=== PATIENT | female | born 2000 | race Caucasian/White ===

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

== ENCOUNTER 2020-06-15 11:13 | Emergency (ER) | payer OTHER ==
--- NOTE | 2020-06-15 12:10 | ED ---
Female Urogenital HPI - General Chief complaint: Vaginal Bleeding Stated complaint: early /vaginal bleeding Time Seen by Provider: 06/15/20 11:28 Source: patient Mode of arrival: ambulatory Limitations: no limitations - History of Present Illness Initial comments: Patient is a 19-year-old female presenting to the emergency Department with complaints of vaginal bleeding and some mild cramping. Patient states she had a positive test last week at home, she was having some bleeding over the next 2 days and was seen at a different facility and had a normal lab work but no ultrasound was done. Patient states the bleeding has continued over the past week and has turned to bright red blood and today she noticed a clot in the toilet so she became concerned and came into the ER for evaluation. She does admit to some mild cramping, none at this time. She does admit to some mild nausea no vomiting. No fever or chills. No history of abdominal surgeries. This is her first . She has been having contact with Dr. Ryan's office however she has not yet established patient there. He denies any chest pain, shortness of breath, cough or recent illnesses. She denies concerns for STDs. She has no further complaints at this time. Upon arrival to the ER, her vital signs are stable. Last Menstrual Period: 05/04/20 - Related Data Home Medications Medication Instructions Recorded Confirmed No Known Home Medications 06/15/20 06/15/20 Allergies Allergy/AdvReac Type Severity Reaction Status Date / Time No Known Allergies Allergy Verified 06/15/20 12:11 Review of Systems ROS Statement: Those systems with pertinent positive or pertinent negative responses have been documented in the HPI. ROS Other: All systems not noted in ROS Statement are negative. Past Medical History Past Medical History: No Reported History History of Any Multi-Drug Resistant Organisms: None Reported Past Surgical History: No Surgical Hx Reported Past Psychological History: Anxiety Smoking Status: Former smoker Past Alcohol Use History: None Reported Past Drug Use History: None Reported General Exam - General Exam Comments Initial Comments: GENERAL: Patient is well-developed and well-nourished. Patient is nontoxic and in no acute distress. HEAD: Atraumatic, normocephalic. EYES: Pupils equal round and reactive to light, extraocular movements intact, sclera anicteric, conjunctiva are normal. Eyelids were unremarkable. ENT: TMs normal, nares patent, oropharynx clear without exudates. Moist mucous membranes. NECK: Normal range of motion, supple without lymphadenopathy or JVD. LUNGS: Unlabored respirations. Breath sounds clear to auscultation bilaterally and equal. No wheezes rales or rhonchi. HEART: Regular rate and rhythm without murmurs, rubs or gallops. ABDOMEN: Soft, nontender, normoactive bowel sounds. No guarding, no rebound. No masses appreciated. : Normal pelvic exam, very minimal vaginal bleeding at this time. MUSCULOSKELETAL: Normal extremities with adequate strength and normal range of motion, no pitting or edema. No clubbing or cyanosis. NEUROLOGICAL: Patient is alert and oriented x 3. Motor and sensory are also intact. Cranial nerves II through XII grossly intact. Symmetrical smile. Normal speech, normal gait. PSYCH: Normal mood, normal affect. SKIN: Warm, Dry, normal turgor, no rashes or lesions noted. Limitations: no limitations Course Vital Signs 06/15/20 06/15/20 11:14 13:06 Temperature 97.5 F L 98.2 F Pulse Rate 82 70 Respiratory 18 16 Rate Blood Pressure 120/69 127/66 O2 Sat by Pulse 100 98 Oximetry Medical Decision Making - Medical Decision Making Patient is 19-year-old female here for vaginal bleeding and some mild cramping over the past week and a half. She did have a positive home test one week ago, this is her first . She has been in contact with Dr. Ryan's office but is not yet established patient. Her vitals are stable. Labs are normal, hCG Quant today is 15.3, urine shows large amount of blood, no evidence of a UTI. Ultrasound today shows no visualized IUP, ectopic , miscarriage, too early to visualize IUP are all in the differential. Patient is having no pain at this time. Blood type is A+. I discussed these findings with the patient. Patient will have hCG levels rechecked in 48 hours, she can follow-up with Dr. Ryan's office. Return parameters were discussed with the patient she verbalized understanding. Case discussed with Dr. Jimenez. - Lab Data Result diagrams: 06/15/20 12:04 06/15/20 12:04 Lab Results 06/15/20 06/15/20 06/15/20 Range/Units 12:04 12:04 12:04 WBC 7.3 (3.8-10.6) k/uL RBC 5.21 (3.80-5.40) m/uL Hgb 14.3 (11.4-16.0) gm/dL Hct 44.1 (34.0-46.0) % MCV 84.6 (80.0-100.0) fL MCH 27.4 (25.0-35.0) pg MCHC 32.4 (31.0-37.0) g/dL RDW 13.2 (11.5-15.5) % Plt Count 334 (150-450) k/uL MPV 6.7 Neutrophils % 67 % Lymphocytes % 27 % Monocytes % 3 % Eosinophils % 2 % Basophils % 0 % Neutrophils # 4.9 (1.3-7.7) k/uL Lymphocytes # 2.0 (1.0-4.8) k/uL Monocytes # 0.2 (0-1.0) k/uL Eosinophils # 0.1 (0-0.7) k/uL Basophils # 0.0 (0-0.2) k/uL Sodium 140 (137-145) mmol/L Potassium 3.7 (3.5-5.1) mmol/L Chloride 105 (98-107) mmol/L Carbon Dioxide 28 (22-30) mmol/L Anion Gap 7 mmol/L BUN 11 (7-17) mg/dL Creatinine 0.76 (0.52-1.04) mg/dL Est GFR (CKD-EPI)AfAm >90 (>60 ml/min/1.73 sqM) Est GFR (CKD-EPI)NonAf >90 (>60 ml/min/1.73 sqM) Glucose 120 H (74-99) mg/dL Calcium 9.3 (8.4-10.2) mg/dL Total Bilirubin 0.5 (0.2-1.3) mg/dL AST 21 (14-36) U/L ALT 15 (4-34) U/L Alkaline Phosphatase 64 (38-126) U/L Total Protein 7.8 (6.3-8.2) g/dL Albumin 4.5 (3.5-5.0) g/dL HCG, Quant 15.3 mIU/mL Urine Color Light Yellow Urine Appearance Cloudy H (Clear) Urine pH 6.0 (5.0-8.0) Ur Specific [place] 1.011 (1.001-1.035) Urine Protein Negative (Negative) Urine Glucose (UA) Negative (Negative) Urine Ketones Negative (Negative) Urine Blood Large H (Negative) Urine Nitrite Negative (Negative) Urine Bilirubin Negative (Negative) Urine Urobilinogen <2.0 (<2.0) mg/dL Ur Leukocyte Esterase Trace H (Negative) Urine RBC <1 (0-5) /hpf Urine WBC 5 (0-5) /hpf Ur Squamous Epith Cells 2 (0-4) /hpf Urine Mucus Rare H (None) /hpf Blood Type Blood Type Recheck Bld Type Recheck Status 06/15/20 Range/Units 12:04 WBC (3.8-10.6) k/uL RBC (3.80-5.40) m/uL Hgb (11.4-16.0) gm/dL Hct (34.0-46.0) % MCV (80.0-100.0) fL MCH (25.0-35.0) pg MCHC (31.0-37.0) g/dL RDW (11.5-15.5) % Plt Count (150-450) k/uL MPV Neutrophils % % Lymphocytes % % Monocytes % % Eosinophils % % Basophils % % Neutrophils # (1.3-7.7) k/uL Lymphocytes # (1.0-4.8) k/uL Monocytes # (0-1.0) k/uL Eosinophils # (0-0.7) k/uL Basophils # (0-0.2) k/uL Sodium (137-145) mmol/L Potassium (3.5-5.1) mmol/L Chloride (98-107) mmol/L Carbon Dioxide (22-30) mmol/L Anion Gap mmol/L BUN (7-17) mg/dL Creatinine (0.52-1.04) mg/dL Est GFR (CKD-EPI)AfAm (>60 ml/min/1.73 sqM) Est GFR (CKD-EPI)NonAf (>60 ml/min/1.73 sqM) Glucose (74-99) mg/dL Calcium (8.4-10.2) mg/dL Total Bilirubin (0.2-1.3) mg/dL AST (14-36) U/L ALT (4-34) U/L Alkaline Phosphatase (38-126) U/L Total Protein (6.3-8.2) g/dL Albumin (3.5-5.0) g/dL HCG, Quant mIU/mL Urine Color Urine Appearance (Clear) Urine pH (5.0-8.0) Ur Specific [place] (1.001-1.035) Urine Protein (Negative) Urine Glucose (UA) (Negative) Urine Ketones (Negative) Urine Blood (Negative) Urine Nitrite (Negative) Urine Bilirubin (Negative) Urine Urobilinogen (<2.0) mg/dL Ur Leukocyte Esterase (Negative) Urine RBC (0-5) /hpf Urine WBC (0-5) /hpf Ur Squamous Epith Cells (0-4) /hpf Urine Mucus (None) /hpf Blood Type A Positive Blood Type Recheck No Previous Record Bld Type Recheck Status [facility] ONLY Disposition Clinical Impression: Threatened miscarriage, Vaginal bleeding Disposition: HOME SELF-CARE Condition: Stable Instructions (If sedation given, give patient instructions): Threatened Miscarriage (ED) Additional Instructions: Please return to the Emergency Department if symptoms worsen or any other concerns. Repeat beta levels in 48 hours as discussed. Follow up with Dr. Ryan's office. Is patient prescribed a controlled substance at d/c from ED?: No Referrals: Yeimy Guzman MD [Primary Care Provider] - 1-2 days Dorinda Ryan DO [Doctor of Osteopathic Medicine] - 1-2 days
[2020-06-15 12:18] LABS: Basophils % (A) 0 %; Eosinophils # (A) 0.1 k/uL (0-0.7); Eosinophils % (A) 2 %; HCT 44.1 % (34.0-46.0); HGB 14.3 gm/dL (11.4-16.0); Lymphocytes % (A) 27 %; MCH 27.4 pg (25.0-35.0); MCHC 32.4 g/dL (31.0-37.0); MCV 84.6 fL (80.0-100.0); Mean Platelet Volume 6.7; Monocytes # (A) 0.2 k/uL (0-1.0); Monocytes % (A) 3 %; Neutrophils # (A) 4.9 k/uL (1.3-7.7); Neutrophils % (A) 67 %; Platelet Count 334 k/uL (150-450); RBC 5.21 m/uL (3.80-5.40); RDW 13.2 % (11.5-15.5); WBC 7.3 k/uL (3.8-10.6)
[2020-06-15 12:29] LABS: ALT 15 U/L (4-34); AST 21 U/L (14-36); African American GFR (CKD) >90 (>60 ml/min/1.73 sqM); Albumin 4.5 g/dL (3.5-5.0); Alkaline Phosphatase 64 U/L (38-126); Anion Gap 7 mmol/L; Blood Urea Nitrogen 11 mg/dL (7-17); Calcium 9.3 mg/dL (8.4-10.2); Carbon Dioxide 28 mmol/L (22-30); Chloride 105 mmol/L (98-107); Glucose 120 mg/dL (74-99); Non-African American GFR(CKD) >90 (>60 ml/min/1.73 sqM); Potassium 3.7 mmol/L (3.5-5.1); Sodium 140 mmol/L (137-145); Total Bilirubin 0.5 mg/dL (0.2-1.3); Total Protein 7.8 g/dL (6.3-8.2)
[2020-06-15 12:30] LABS: Appearance,Urine Cloudy (Clear); Bilirubin,Urine Negative (Negative); Blood,Urine Large (Negative); Color,Urine Light Yellow; Glucose,Urine (UA) Negative (Negative); Ketones,Urine Negative (Negative); Leukocyte Esterase,Urine Trace (Negative); Mucus,Urine Rare /hpf; Nitrite,Urine Negative (Negative); Protein,Urine Negative (Negative); RBC,Urine <1 /hpf (0-5); Specific Gravity,Urine 1.011 (1.001-1.035); Squamous Epithelial Cell,Urine 2 /hpf (0-4); Urobilinogen,Urine <2.0 mg/dL (<2.0); WBC,Urine 5 /hpf (0-5)
[2020-06-15 12:44] LABS: HCG,Quantitative Serum 15.3 mIU/mL
--- NOTE | 2020-06-15 12:48 | US ---
EXAMINATION TYPE: Ultrasound OB <= 14 weeks transvaginal DATE OF EXAM: 06/15/2020 12:29 PM COMPARISON: NONE CLINICAL HISTORY: 19-year-old female bleeding, cramp, 5wks. Pt states light vaginal bleeding, passing small clot this AM EXAM PERFORMED: Transvaginal (TV) and Transabdominal (TA) FINDINGS: EXAM MEASUREMENTS: GESTATIONAL AGE / DATING Physician Established: Not yet established Dates by LMP: (6 weeks/0 days) EDC: 02/08/2021 Dates by First Scan: No prior Dates by Current Scan for: No IUP seen at this time MATERNAL ANATOMY Uterus: 6.7 x 2.8 x 4.6 cm Right Ovary: 2.4 x 1.9 x 1.4 cm Left Ovary: 2.5 x 1.6 x 2.1 cm Post CDS / Adnexa: Heterogeneous round area measuring 2.1 x 1.5 x 1.1 cm adjacent to the left ovary w ithin the left adnexa. Presence of free fluid: No Presence of corpus luteal cyst: No Presence of subchorionic bleed: No GESTATION / SURVEY IUP: No IUP seen at this time, endo= 0.3 cm Date of LMP: 05/04/2020 Beta HcG (if available): Not available at this time No evidence of IUP, endo not thickened, heterogeneous round area within left adnexa, adjacent to th e ovary measuring 2.1 x 1.5 x 1.1 cm IMPRESSION: 1. No visualized intrauterine at this time. 2. A 2.1 cm round area within the left adnexa adjacent to the left ovary. Given positive st atus and nonvisualization of an intrauterine , early ectopic is difficult to exclu de. Correlate with beta-hCG values. A value of 2000 is the threshold for visualization of an intraute rine . Ectopic , failed , and too early to visualize intrauterine pregnanc y are in the on the differential at this time.
[2020-06-15 13:11] VITALS: BP 127/66; PULSE 70; RESP 16; TEMP 98.2
== END 2020-06-15 13:26 | disposition home or self-care (01) ==
LOC: EC 11:13
DX: O20.0 Threatened abortion (principal); Z3A.00 Weeks of gestation of pregnancy not specified; Z87.891 Personal history of nicotine dependence
CPT/HCPCS: 36415; 76801; 76817; 80053; 81001; 84702; 85025; 86900; 86901; 99284

== ENCOUNTER → 2020-06-17 | Outpatient (CLI) | payer OTHER | LOC: LABWHC1 11:52 | PROVIDERS: ATTEND Physician Assistant Medical | DX: N93.9 Abnormal uterine and vaginal bleeding, unspecified (principal) | CPT/HCPCS: 36415; 84702 ==

== ENCOUNTER 2020-08-19 08:20 | Emergency (ER) | payer OTHER ==
[2020-08-19 08:26] VITALS: BP 106/69; PULSE 76; RESP 18; TEMP 97.5
--- NOTE | 2020-08-19 08:41 | ED ---
General Adult HPI - General Chief complaint: Abdominal Pain Stated complaint: UTI Source: patient, family, RN notes reviewed, old records reviewed Mode of arrival: ambulatory Limitations: no limitations - History of Present Illness Initial comments: This is a 19-year-old female comes in complaining that she has dysuria and urinary frequency and urgency. Patient states she's had a urinary tract infection in the past and this feels similar. Patient denies any back pain. Patient denies any fever. Patient states she has some suprapubic discomfort but no actual pain per patient denies any nausea vomiting diarrhea. Patient denies any recent fever chills or cough per patient denies any chest pain difficulty breathing shortest breath per patient denies headache patient denies numbness weakness. - Related Data Previous Rx's Medication Instructions Recorded Cephalexin [Keflex] 500 mg PO Q6HR 1 Days #4 cap 08/19/20 Allergies Allergy/AdvReac Type Severity Reaction Status Date / Time No Known Allergies Allergy Verified 08/19/20 08:24 Review of Systems ROS Statement: Those systems with pertinent positive or pertinent negative responses have been documented in the HPI. ROS Other: All systems not noted in ROS Statement are negative. Past Medical History Past Medical History: No Reported History History of Any Multi-Drug Resistant Organisms: None Reported Past Surgical History: No Surgical Hx Reported Past Psychological History: Anxiety Smoking Status: Former smoker Past Alcohol Use History: None Reported Past Drug Use History: None Reported General Exam - General Exam Comments Initial Comments: GENERAL: Patient is well-developed and well-nourished. Patient is nontoxic and well- hydrated and is in mild distress. ENT: Neck is soft and supple. No significant lymphadenopathy is noted. Oropharynx is clear. Moist mucous membranes. Neck has full range of motion without eliciting any pain. There is no thyroid enlargement and no masses were felt. EYES: The sclera were anicteric and conjunctiva were pink and moist. Extraocular movements were intact and pupils were equal round and reactive to light. Eyelids were unremarkable. PULMONARY: Unlabored respirations. Good breath sounds bilaterally. No audible rales rhonchi or wheezing was noted. CARDIOVASCULAR: There is a regular rate and rhythm without any murmurs gallops or rubs. ABDOMEN: Mild suprapubic tenderness. SKIN: Skin is clear with no lesions or rashes and otherwise unremarkable. NEUROLOGIC: Patient is alert and oriented x3. Cranial nerves II through XII are grossly intact. Motor and sensory are also intact. Normal speech, volume and content. Symmetrical smile. Cerebellar exam grossly intact. MUSCULOSKELETAL: Normal extremities with adequate strength and full range of motion. Patient has no CVA tenderness LYMPHATICS: No significant lymphadenopathy is noted PSYCHIATRIC: Normal psychiatric evaluation. Limitations: no limitations Course Vital Signs 08/19/20 08:21 Temperature 97.5 F L Pulse Rate 76 Respiratory 18 Rate Blood Pressure 106/69 O2 Sat by Pulse 98 Oximetry Medical Decision Making - Medical Decision Making Patient's urine only had 12 white cells no bacteria notices no nitrates however patient's symptoms were consistent with UTI side did have the urine culture and I will put the patient on an antibiotic to have her follow-up for results with her medical care doctor. Patient also states she is monogamous relationship however I did do a gonorrhea and chlamydia on the urine. - Lab Data Lab Results 08/19/20 08/19/20 Range/Units 08:51 08:51 Urine Color Yellow Urine Appearance Clear (Clear) Urine pH 6.0 (5.0-8.0) Ur Specific [place] 1.005 (1.001-1.035) Urine Protein Negative (Negative) Urine Glucose (UA) Negative (Negative) Urine Ketones Negative (Negative) Urine Blood Negative (Negative) Urine Nitrite Negative (Negative) Urine Bilirubin Negative (Negative) Urine Urobilinogen <2.0 (<2.0) mg/dL Ur Leukocyte Esterase Small H (Negative) Urine RBC 1 (0-5) /hpf Urine WBC 12 H (0-5) /hpf Ur Squamous Epith Cells 1 (0-4) /hpf Urine HCG, Qual Not Detected (Not Detectd) Disposition Clinical Impression: Urinary tract infection Disposition: HOME SELF-CARE Condition: Good Prescriptions: Cephalexin [Keflex] 500 mg PO Q6HR 1 Days #4 cap Is patient prescribed a controlled substance at d/c from ED?: No Referrals: Yeimy Guzman MD [Primary Care Provider] - 1-2 days Time of Disposition: 09:09
[2020-08-19 09:02] LABS: Appearance,Urine Clear (Clear); Bilirubin,Urine Negative (Negative); Blood,Urine Negative (Negative); Color,Urine Yellow; Glucose,Urine (UA) Negative (Negative); Ketones,Urine Negative (Negative); Leukocyte Esterase,Urine Small (Negative); Nitrite,Urine Negative (Negative); Protein,Urine Negative (Negative); RBC,Urine 1 /hpf (0-5); Specific Gravity,Urine 1.005 (1.001-1.035); Squamous Epithelial Cell,Urine 1 /hpf (0-4); Urobilinogen,Urine <2.0 mg/dL (<2.0); WBC,Urine 12 /hpf (0-5)
[2020-08-20 14:49] LABS: C. trachomatis,PCR Negative (Neg,Equiv); Chlamydia trachomatis Source Urine
[2020-08-20 14:49] LABS: N. gonorrhoeae,PCR Negative (Neg,Equiv); Neisseria Source Urine
== END 2020-08-19 09:20 | disposition home or self-care (01) ==
LOC: EC 08:20
DX: N39.0 Urinary tract infection, site not specified (principal); Z87.891 Personal history of nicotine dependence
CPT/HCPCS: 81001; 81025; 87086; 87491; 87591; 99283

== ENCOUNTER 2020-11-06 11:27 | Emergency (ER) | payer OTHER ==
[2020-11-06 12:09] VITALS: TEMP 97.7
--- NOTE | 2020-11-06 12:40 | ED ---
General Adult HPI - General Chief complaint: Vaginal Bleeding Stated complaint: +preg test, bleeding Time Seen by Provider: 11/06/20 12:10 Source: patient, RN notes reviewed Mode of arrival: ambulatory Limitations: no limitations - History of Present Illness Initial comments: 20-year-old female presents emergency from chief complaint of vaginal bleeding early . Patient is A1 states that she had some spotting gastritis morning denies any lower abdominal pain cramping no vaginal discharge. Patient states that she is scheduled follow-up with her primary care physician on Sunday has not contacted a [facility] at this time. Patient does admit to a miscarriage a few months prior. - Related Data Previous Rx's Medication Instructions Recorded Cephalexin [Keflex] 500 mg PO Q6HR 1 Days #4 cap 08/19/20 Allergies Allergy/AdvReac Type Severity Reaction Status Date / Time No Known Allergies Allergy Verified 11/06/20 12:08 Review of Systems ROS Statement: Those systems with pertinent positive or pertinent negative responses have been documented in the HPI. ROS Other: All systems not noted in ROS Statement are negative. Past Medical History Past Medical History: No Reported History History of Any Multi-Drug Resistant Organisms: None Reported Past Surgical History: No Surgical Hx Reported Past Psychological History: Anxiety Smoking Status: Former smoker Past Alcohol Use History: None Reported Past Drug Use History: None Reported General Exam Limitations: no limitations General appearance: alert, in no apparent distress Head exam: Present: atraumatic, normocephalic, normal inspection Respiratory exam: Present: normal lung sounds bilaterally. Absent: respiratory distress, wheezes, rales, rhonchi, stridor Cardiovascular Exam: Present: regular rate, normal rhythm, normal heart sounds. Absent: systolic murmur, diastolic murmur, rubs, gallop, clicks GI/Abdominal exam: Present: soft, normal bowel sounds. Absent: distended, tenderness, guarding, rebound, rigid Back exam: Absent: CVA tenderness (R), CVA tenderness (L) Neurological exam: Present: alert Skin exam: Present: warm, dry, intact, normal color. Absent: rash Course Vital Signs 11/06/20 12:05 Temperature 97.7 F Pulse Rate 90 Respiratory 20 Rate Blood Pressure 117/66 O2 Sat by Pulse 100 Oximetry Medical Decision Making - Medical Decision Making 20-year-old female presented for vaginal bleeding. Patient states she had a positive test at home patient's hCG is less than 2.4. Patient is currently having her menstrual cycle be discharged stable condition. - Lab Data Lab Results 11/06/20 11/06/20 Range/Units 12:19 12:19 HCG, Quant <2.4 mIU/mL Urine Color Yellow Urine Appearance Cloudy H (Clear) Urine pH 6.0 (5.0-8.0) Ur Specific [place] 1.030 (1.001-1.035) Urine Protein Trace H (Negative) Urine Glucose (UA) Negative (Negative) Urine Ketones Negative (Negative) Urine Blood Large H (Negative) Urine Nitrite Negative (Negative) Urine Bilirubin Negative (Negative) Urine Urobilinogen <2.0 (<2.0) mg/dL Ur Leukocyte Esterase Small H (Negative) Urine RBC 102 H (0-5) /hpf Urine WBC 15 H (0-5) /hpf Ur Squamous Epith Cells 3 (0-4) /hpf Urine Bacteria Rare H (None) /hpf Urine Mucus Occasional H (None) /hpf Disposition Clinical Impression: Vaginal bleeding Disposition: HOME SELF-CARE Condition: Stable Instructions (If sedation given, give patient instructions): Dysfunctional Uterine Bleeding (ED) Additional Instructions: Please return to the Emergency Department if symptoms worsen or any other concerns. Is patient prescribed a controlled substance at d/c from ED?: No Referrals: Yeimy Guzman MD [Primary Care Provider] - 1-2 days Time of Disposition: 13:16
[2020-11-06 12:43] LABS: Appearance,Urine Cloudy (Clear); Bacteria,Urine Rare /hpf; Bilirubin,Urine Negative (Negative); Blood,Urine Large (Negative); Color,Urine Yellow; Glucose,Urine (UA) Negative (Negative); Ketones,Urine Negative (Negative); Leukocyte Esterase,Urine Small (Negative); Mucus,Urine Occasional /hpf; Nitrite,Urine Negative (Negative); Protein,Urine Trace (Negative); RBC,Urine 102 /hpf (0-5); Squamous Epithelial Cell,Urine 3 /hpf (0-4); Urobilinogen,Urine <2.0 mg/dL (<2.0); WBC,Urine 15 /hpf (0-5)
--- NOTE | 2020-11-06 13:29 | US ---
EXAMINATION TYPE: Transabdominal DATE OF EXAM: 11/06/2020 1:16 PM COMPARISON: NONE CLINICAL HISTORY: pain, bleeding. EXAM PERFORMED: Transabdominal (TA) EXAM MEASUREMENTS: GESTATIONAL AGE / DATING Physician Established: Not yet established Dates by LMP: (4 weeks/5 days) EDC: 07-11-21 Dates by First Scan: No previous this is first scan Dates by Current Scan for: Unable to date by today's study MATERNAL ANATOMY Uterus: 7.1 x 3.3 x Right Ovary: 2.3 x 1.5 x 1.6cm Left Ovary: 2.2 x 1.2 x 1.3 Post CDS / Adnexa: wnl Presence of free fluid: no Presence of corpus luteal cyst: no Presence of subchorionic bleed:no GESTATION / SURVEY IUP: No IUP seen at this time Date of LMP: 10-04-20 Beta HcG (if available): Not available at this time Normal appearing uterus and endometrium with no evidence for intrauterine . No adnexal abnor malities. IMPRESSION: No significant abnormality of the uterus or adnexa. No evidence of intrauterine .
[2020-11-06 13:56] VITALS: BP 105/59; PULSE 61; RESP 18
== END 2020-11-06 13:56 | disposition home or self-care (01) ==
LOC: EC 11:27
DX: O20.9 Hemorrhage in early pregnancy, unspecified (principal); Z87.891 Personal history of nicotine dependence; Z3A.01 Less than 8 weeks gestation of pregnancy
CPT/HCPCS: 36415; 76801; 81001; 84702; 87086; 99284

== ENCOUNTER 2021-02-27 16:43 | Emergency (ER) | payer OTHER ==
[2021-02-27 16:55] VITALS: RESP 18; TEMP 98
--- NOTE | 2021-02-27 19:38 | XR ---
EXAMINATION TYPE: XR chest 2V DATE OF EXAM: 02/27/2021 COMPARISON: NONE HISTORY: Cough. Short of breath. TECHNIQUE: 2 views FINDINGS: Heart and mediastinum are normal. Lungs are clear. Diaphragm is normal. Bony thorax appears normal. Pulmonary vascularity is normal. IMPRESSION: Normal chest.
--- NOTE | 2021-02-27 19:38 | ED ---
General Adult HPI - General Chief complaint: Upper Respiratory Infection Stated complaint: difficulty breathing Time Seen by Provider: 02/27/21 19:05 Source: patient, RN notes reviewed Mode of arrival: ambulatory Limitations: no limitations - History of Present Illness Initial comments: 20-year-old female presents to the emergency room for chief complaint of not feeling well. Patient states she started to feel well yesterday however worsened today. States she is very congested and has trouble breathing through her nose. States she has a cough as well. Denies any significant shortness of breath other than nasal congestion. Patient states her throat hurts. Patient denies history of asthma but does admit to smoking. Denies fevers. Denies body aches. Patient has no other complaints at this time including shortness of breath, chest pain, abdominal pain, nausea or vomiting, headache, or visual changes. - Related Data Previous Rx's Medication Instructions Recorded Cephalexin [Keflex] 500 mg PO Q6HR 1 Days #4 cap 08/19/20 Benzonatate [Tessalon Perles] 200 mg PO Q8H PRN #15 cap 02/27/21 guaiFENesin [Mucinex] 600 mg PO Q12HR PRN #20 tab 02/27/21 Allergies Allergy/AdvReac Type Severity Reaction Status Date / Time No Known Allergies Allergy Verified 11/06/20 12:08 Review of Systems ROS Statement: Those systems with pertinent positive or pertinent negative responses have been documented in the HPI. ROS Other: All systems not noted in ROS Statement are negative. Past Medical History Past Medical History: No Reported History History of Any Multi-Drug Resistant Organisms: None Reported Past Surgical History: No Surgical Hx Reported Past Psychological History: Anxiety Smoking Status: Current some day smoker Past Alcohol Use History: None Reported Past Drug Use History: None Reported General Exam Limitations: no limitations General appearance: alert, in no apparent distress Head exam: Present: atraumatic Eye exam: Present: normal appearance, PERRL, EOMI. Absent: scleral icterus, conjunctival injection ENT exam: Present: normal exam, normal oropharynx (Uvula midline, no tonsillar exudates bilaterally), mucous membranes moist, TM's normal bilaterally, normal external ear exam Neck exam: Present: normal inspection, full ROM. Absent: tenderness Respiratory exam: Present: normal lung sounds bilaterally. Absent: respiratory distress, wheezes, rales, rhonchi, accessory muscle use Cardiovascular Exam: Present: regular rate, normal rhythm, normal heart sounds GI/Abdominal exam: Present: soft, normal bowel sounds. Absent: distended, ten derness Course Vital Signs 02/27/21 16:52 Temperature 98.0 F Pulse Rate 81 Respiratory 18 Rate Blood Pressure 114/77 O2 Sat by Pulse 99 Oximetry Medical Decision Making - Medical Decision Making Vitals are stable. Patient is well-appearing. Patient presents with congestion and cough. No fevers. Concepcion virus and strep is negative. Chest x-ray shows a normal chest. Patient likely is viral upper respiratory infection. We will treat symptomatically. Patient will follow up with her doctor. She will return for any worsening symptoms. - Lab Data Lab Results 02/27/21 02/27/21 Range/Units 19:28 19:28 Coronavirus (PCR) Not Detected (Not Detectd) Group A Strep Rapid Negative (Negative) Disposition Clinical Impression: Cough, Congestion of nasal sinus Disposition: HOME SELF-CARE Condition: Good Instructions (If sedation given, give patient instructions): Upper Respiratory Infection (ED) Additional Instructions: Take medications as directed. Follow-up with your doctor in one to 2 days. Return to the emergency room for any worsening symptoms. Prescriptions: guaiFENesin [Mucinex] 600 mg PO Q12HR PRN #20 tab PRN Reason: Congestion Benzonatate [Tessalon Perles] 200 mg PO Q8H PRN #15 cap PRN Reason: Cough Is patient prescribed a controlled substance at d/c from ED?: No Referrals: Yeimy Guzman MD [Primary Care Provider] - 1-2 days Time of Disposition: 20:45
[2021-02-27 20:58] VITALS: BP 121/78; PULSE 88
== END 2021-02-27 20:56 | disposition home or self-care (01) ==
LOC: EC 16:43
DX: R05 Cough (principal); R09.81 Nasal congestion; F17.200 Nicotine dependence, unspecified, uncomplicated; F41.9 Anxiety disorder, unspecified; Z20.822 Contact with and (suspected) exposure to COVID-19
CPT/HCPCS: 71046; 87081; 87430; 87635; 99284

== ENCOUNTER → 2021-11-29 | Outpatient (CLI) | payer OTHER | END | disposition home or self-care (01) | LOC: LABWHC1 13:20 | PROVIDERS: ATTEND Obstetrics & Gynecology | DX: N92.6 Irregular menstruation, unspecified (principal) | CPT/HCPCS: 36415; 84702 ==

== ENCOUNTER → 2021-12-01 | Outpatient (CLI) | payer OTHER | END | disposition home or self-care (01) | LOC: LABWHC1 13:42 | PROVIDERS: ATTEND Obstetrics & Gynecology | DX: N92.6 Irregular menstruation, unspecified (principal) | CPT/HCPCS: 36415; 84702 ==

== ENCOUNTER → 2021-12-03 | Outpatient (CLI) | payer OTHER | END | disposition home or self-care (01) | LOC: LABWHC1 10:15 | PROVIDERS: ATTEND Obstetrics & Gynecology | DX: O20.0 Threatened abortion (principal); Z3A.00 Weeks of gestation of pregnancy not specified | CPT/HCPCS: 36415; 84702 ==

== ENCOUNTER → 2021-12-06 | Outpatient (CLI) | payer OTHER ==
[2021-12-06 14:19] LABS: HCG,Quantitative Serum 57.1 mIU/mL
== END | disposition home or self-care (01) ==
LOC: LABWHC1 13:37
PROVIDERS: ATTEND Obstetrics & Gynecology
DX: O00.90 Unspecified ectopic pregnancy without intrauterine pregnancy (principal); Z3A.00 Weeks of gestation of pregnancy not specified
CPT/HCPCS: 36415; 84450; 84460; 84702

== ENCOUNTER → 2021-12-07 | Outpatient (CLI) | payer OTHER ==
[~2021-12-07] MED LIST: METHOTREXATE SODIUM (PF) 25 MG/ML 2 ML VIAL IM NR
[2021-12-07 14:38] VITALS: BP 101/67; PULSE 73; RESP 18; TEMP 97.3
== END ==
LOC: PROCWHC3 14:06
PROVIDERS: ATTEND Obstetrics & Gynecology
DX: O00.90 Unspecified ectopic pregnancy without intrauterine pregnancy (principal); Z3A.00 Weeks of gestation of pregnancy not specified
CPT/HCPCS: 96402; J9260

== ENCOUNTER 2022-12-31 09:27 | Inpatient (IN) | payer OTHER ==
[2022-12-31] MEDS ORDERED: SODIUM CHLORIDE 0.9% 1,000 ML IV STA (09:53)
[2022-12-31] MEDS ORDERED: SODIUM CHLORIDE 0.9% 500 ML 500 ML IV STA (09:53)
[2022-12-31] MEDS ORDERED: ONDANSETRON 4 MG/2 ML VIAL IVP STA (09:53)
[2022-12-31] MEDS ORDERED: HYDROmorphone 0.5 MG/0.5 ML SYRINGE IVP STA (09:54)
[2022-12-31] MEDS ORDERED: KETOROLAC 15 MG/ML 1 ML VIAL IVP STA (09:54)
[2022-12-31 10:35] LABS: Basophils % (A) 0 %; Eosinophils # (A) 0.1 k/uL (0-0.7); Eosinophils % (A) 1 %; HCT 41.5 % (34.0-46.0); HGB 13.9 gm/dL (11.4-16.0); Lymphocytes # (A) 1.6 k/uL (1.0-4.8); Lymphocytes % (A) 18 %; MCH 28.9 pg (25.0-35.0); MCHC 33.5 g/dL (31.0-37.0); MCV 86.1 fL (80.0-100.0); Mean Platelet Volume 7.4; Monocytes # (A) 0.5 k/uL (0-1.0); Monocytes % (A) 5 %; Neutrophils # (A) 6.8 k/uL (1.3-7.7); Neutrophils % (A) 76 %; Platelet Count 265 k/uL (150-450); RBC 4.82 m/uL (3.80-5.40); RDW 13.2 % (11.5-15.5)
[2022-12-31 10:40] LABS: ALT 16 U/L (4-34); AST 18 U/L (14-36); African American GFR (CKD) >90 (>60 ml/min/1.73 sqM); Albumin 4.3 g/dL (3.5-5.0); Alkaline Phosphatase 63 U/L (38-126); Anion Gap 8 mmol/L; Blood Urea Nitrogen 16 mg/dL (7-17); Carbon Dioxide 24 mmol/L (22-30); Chloride 104 mmol/L (98-107); Glucose 103 mg/dL (74-99); Lipase 36 U/L (23-300); Non-African American GFR(CKD) >90 (>60 ml/min/1.73 sqM); Sodium 136 mmol/L (137-145); Total Bilirubin 0.5 mg/dL (0.2-1.3); Total Protein 7.7 g/dL (6.3-8.2)
[2022-12-31 11:24] LABS: Appearance,Urine Clear (Clear); Bilirubin,Urine Negative (Negative); Blood,Urine Negative (Negative); Color,Urine Light Yellow; Glucose,Urine (UA) Negative (Negative); Ketones,Urine Negative (Negative); Protein,Urine Negative (Negative)
[2022-12-31 11:25] LABS: Leukocyte Esterase,Urine Moderate (Negative); Nitrite,Urine Negative (Negative)
[2022-12-31 11:26] LABS: Bacteria,Urine Many /hpf; Squamous Epithelial Cell,Urine 10 /hpf (0-4); Urobilinogen,Urine <2.0 mg/dL (<2.0); WBC,Urine 10 /hpf (0-5)
--- NOTE | 2022-12-31 12:11 | CT ---
EXAMINATION TYPE: CT abdomen pelvis w con CT DLP: 1091.5 mGycm, Automated exposure control for dose reduction was used. DATE OF EXAM: 12/31/2022 11:23 AM COMPARISON: None. CLINICAL INDICATION:Female, 22 years old with history of abdominal pain; RUQ PAIN AND FLANK PAIN TECHNIQUE: Axial CT of the abdomen and pelvis. Sagittal and coronal reformats were created on a [employer] workstation. Contrast used:100 mL of Isovue 300 with IV Contrast, (none if empty) Oral contrast used: without Oral Contrast (none if empty) FINDINGS: LOWER CHEST: Unremarkable ABDOMEN LIVER: Unremarkable GALLBLADDER AND BILE DUCTS: Mild gallbladder wall thickening is present. PANCREAS: Unremarkable. SPLEEN: Unremarkable. ADRENAL GLANDS: Unremarkable. KIDNEYS AND URETERS: No evidence of hydronephrosis or renal calculus. The ureters are unremarkable. PELVIS BLADDER: Unremarkable REPRODUCTIVE: Right corpus luteal cyst with hyperemia. ABDOMEN & PELVIS STOMACH AND BOWEL: No evidence of bowel obstruction. The appendix is normal. PERITONEUM/RETROPERITONEUM: No evidence of pneumoperitoneum or free fluid. VASCULATURE: No evidence of aortic aneurysm. MUSCULOSKELETAL: No acute osseous abnormalities LYMPH NODES: No gross evidence for lymphadenopathy. SOFT TISSUE/ABDOMINAL WALL: Unremarkable IMPRESSION: 1. Mild gallbladder wall thickening concerning for acute cholecystitis. Further evaluation limited q uadrant ultrasound attention to gallbladder recommended. 2. Normal appendix, no obstructive uropathy.
[2022-12-31] MEDS ORDERED: HYDROmorphone 0.5 MG/0.5 ML SYRINGE IVP PRN (12:48)
[2022-12-31] MEDS ORDERED: NALOXONE 0.4 MG/ML 1 ML VIAL IV PRN (12:48)
--- NOTE | 2022-12-31 12:48 | ED ---
Abdominal Pain HPI - General Chief Complaint: Abdominal Pain Stated Complaint: Abd Pain Time Seen by Provider: 12/31/22 09:44 Source: patient, RN notes reviewed Mode of arrival: ambulatory Limitations: no limitations - History of Present Illness Initial Comments: 22-year-old female presents emergency from chief complaint of increased abdominal pain. Patient was here one week ago for similar complaints found to have gallstones. Patient states symptoms worsened this morning she has been increasing nausea. She states that she has hot and cold flashes states that the pains much more intense than it was. - Related Data Home Medications Medication Instructions Recorded Confirmed No Known Home Medications 07/16/21 12/07/21 Allergies Allergy/AdvReac Type Severity Reaction Status Date / Time No Known Allergies Allergy Verified 12/31/22 09:31 Review of Systems ROS Statement: Those systems with pertinent positive or pertinent negative responses have been documented in the HPI. ROS Other: All systems not noted in ROS Statement are negative. Past Medical History Past Medical History: No Reported History History of Any Multi-Drug Resistant Organisms: None Reported Past Surgical History: No Surgical Hx Reported Past Psychological History: Anxiety Smoking Status: Never smoker Past Alcohol Use History: None Reported Past Drug Use History: None Reported General Exam Limitations: no limitations General appearance: alert, in no apparent distress Head exam: Present: atraumatic, normocephalic, normal inspection Respiratory exam: Present: normal lung sounds bilaterally. Absent: respiratory distress, wheezes, rales, rhonchi, stridor Cardiovascular Exam: Present: regular rate, normal rhythm, normal heart sounds. Absent: systolic murmur, diastolic murmur, rubs, gallop, clicks GI/Abdominal exam: Present: soft, tenderness, normal bowel sounds. Absent: distended, guarding, rebound, rigid Back exam: Absent: CVA tenderness (R), CVA tenderness (L) Neurological exam: Present: alert Course Vital Signs 12/31/22 12/31/22 09:30 11:42 Temperature 98 F 97.7 F Pulse Rate 60 62 Respiratory 18 18 Rate Blood Pressure 112/70 114/63 O2 Sat by Pulse 100 97 Oximetry Medical Decision Making - Medical Decision Making Was pt. sent in by a medical professional or institution (, PA, BLADDER BLOWER, urgent care, hospital, or long term...) When possible be specific @ -No Did you speak to anyone other than the patient for history (EMS, parent, family, police, friend...)? What history was obtained from this source @ -No Did you review nursing and triage notes (agree or disagree)? Why? @ -I reviewed and agree with nursing and triage notes Were old charts reviewed (outside hosp., previous admission, EMS record, old EKG, old radiological studies, urgent care reports/EKG's, long term records)? Report findings @ -Reviewed prior laboratory studies and ultrasound Differential Diagnosis (chest pain, altered mental status, abdominal pain women, abdominal pain men, vaginal bleeding, weakness, fever, dyspnea, syncope, headache, dizziness, GI bleed, back pain, seizure, CVA, palpatations, mental health, musculoskeletal)? @ -nDifferential Abdominal Pain Women: Appendicitis, Cholecystitis, diverticulosis, ischemic bowel, pancreatitis, hepatitis, UTI, gastroenteritis, AAA, incarcerated hernia, bowel obstruction, constipation, inflammatory bowel, hepatitis, peptic ulcer disease, splenic infarction, perforated viscus, vulvitis, ovarian torsion, PID, kidney stone, placenta abruption, this is not meant to be an all-inclusive listable EKG interpreted by me (3pts min.). @ -None X-rays interpreted by me (1pt min.). @ -None done CT interpreted by me (1pt min.). @ -CT abdomen pelvis shows evidence of gallbladder wall thickening concerning for cholecystitis U/S interpreted by me (1pt. min.). @ -None done What testing was considered but not performed or refused? (CT, X-rays, U/S, labs)? Why? @ -None What meds were considered but not given or refused? Why? @ -None Did you discuss the management of the patient with other professionals (professionals i.e. , PA, BLADDER BLOWER, lab, RT, psych nurse, social science research assistant, solar photovoltaic installer, teacher, health officer, case technician)? Give summary @ -I dizziness case with Dr. thorne who accepts admission recommend nothing by mouth diet, antibiotics] Was smoking cessation discussed for >3mins.? @ -No Was critical care preformed (if so, how long)? @ -No Were there social determinants of health that impacted care today? How? ( Homelessness, low income, unemployed, alcoholism, drug addiction, transportation, low edu. Level, literacy, decrease access to med. care, skilled nursing, rehab)? @ -No Was there de-escalation of care discussed even if they declined (Discuss DNR or withdrawal of care, Hospice)? DNR status @ -No What co-morbidities impacted this encounter? (DM, HTN, Smoking, COPD, CAD, Cancer, CVA, ARF, Chemo, Hep., AIDS, mental health diagnosis, sleep apnea, morbid obesity)? @ -None Was patient admitted / discharged? Hospital course, mention meds given and route, prescriptions, significant lab abnormalities, going to OR and other pertinent info. @ -Admitted patient was started on Zosyn. Patient has evidence of acute cholecystitis with cholelithiasis patient has no transaminitis. Patient will be kept nothing by mouth per surgeon request. Patient updated on results. Undiagnosed new problem with uncertain prognosis? @ -No Drug Therapy requiring intensive monitoring for toxicity (Heparin, Nitro, Insulin, Cardizem)? @ -No Were any procedures done? @ -No Diagnosis/symptom? @ -Acute cholecystitis Acute, or acute Acute] Uncomplicated (without systemic symptoms) or Complicated (systemic symptoms)? @ -complicated Side effects of treatment? @ -No Exacerbation, Progression, or Severe Exacerbation? @ -No Poses a threat to life or bodily function? How? (Chest pain, USA, SD, pneumonia, PE, COPD, DKA, ARF, appy, cholecystitis, CVA, Diverticulitis, Homicidal, S uicidal, threat to staff... and all critical care pts) @ -No - Lab Data Result diagrams: 12/31/22 10:01 12/31/22 10:01 Lab Results 12/31/22 12/31/22 12/31/22 Range/Units 10:01 10:01 10:01 WBC 9.0 (3.8-10.6) k/uL RBC 4.82 (3.80-5.40) m/uL Hgb 13.9 (11.4-16.0) gm/dL Hct 41.5 (34.0-46.0) % MCV 86.1 (80.0-100.0) fL MCH 28.9 (25.0-35.0) pg MCHC 33.5 (31.0-37.0) g/dL RDW 13.2 (11.5-15.5) % Plt Count 265 (150-450) k/uL MPV 7.4 Neutrophils % 76 % Lymphocytes % 18 % Monocytes % 5 % Eosinophils % 1 % Basophils % 0 % Neutrophils # 6.8 (1.3-7.7) k/uL Lymphocytes # 1.6 (1.0-4.8) k/uL Monocytes # 0.5 (0-1.0) k/uL Eosinophils # 0.1 (0-0.7) k/uL Basophils # 0.0 (0-0.2) k/uL Sodium (137-145) mmol/L Potassium (3.5-5.1) mmol/L Chloride (98-107) mmol/L Carbon Dioxide (22-30) mmol/L Anion Gap mmol/L BUN (7-17) mg/dL Creatinine (0.52-1.04) mg/dL Est GFR (CKD-EPI)AfAm (>60 ml/min/1.73 sqM) Est GFR (CKD-EPI)NonAf (>60 ml/min/1.73 sqM) Glucose (74-99) mg/dL Plasma Lactic Acid Jeremy (0.7-2.0) mmol/L Calcium (8.4-10.2) mg/dL Total Bilirubin (0.2-1.3) mg/dL AST (14-36) U/L ALT (4-34) U/L Alkaline Phosphatase (38-126) U/L Total Protein (6.3-8.2) g/dL Albumin (3.5-5.0) g/dL Lipase (23-300) U/L Urine Color Light Yellow Urine Appearance Clear (Clear) Urine pH 6.0 (5.0-8.0) Ur Specific [place] 1.020 (1.001-1.035) Urine Protein Negative (Negative) Urine Glucose (UA) Negative (Negative) Urine Ketones Negative (Negative) Urine Blood Negative (Negative) Urine Nitrite Negative (Negative) Urine Bilirubin Negative (Negative) Urine Urobilinogen <2.0 (<2.0) mg/dL Ur Leukocyte Esterase Moderate (Negative) Urine WBC 10 H (0-5) /hpf Ur Squamous Epith Cells 10 H (0-4) /hpf Urine Bacteria Many H (None) /hpf Urine HCG, Qual Not Detected (Not Detectd) 07/30/23 07/30/23 Range/Units 10:01 10:01 WBC (3.8-10.6) k/uL RBC (3.80-5.40) m/uL Hgb (11.4-16.0) gm/dL Hct (34.0-46.0) % MCV (80.0-100.0) fL MCH (25.0-35.0) pg MCHC (31.0-37.0) g/dL RDW (11.5-15.5) % Plt Count (150-450) k/uL MPV Neutrophils % % Lymphocytes % % Monocytes % % Eosinophils % % Basophils % % Neutrophils # (1.3-7.7) k/uL Lymphocytes # (1.0-4.8) k/uL Monocytes # (0-1.0) k/uL Eosinophils # (0-0.7) k/uL Basophils # (0-0.2) k/uL Sodium 136 L (137-145) mmol/L Potassium 4.0 (3.5-5.1) mmol/L Chloride 104 (98-107) mmol/L Carbon Dioxide 24 (22-30) mmol/L Anion Gap 8 mmol/L BUN 16 (7-17) mg/dL Creatinine 0.83 (0.52-1.04) mg/dL Est GFR (CKD-EPI)AfAm >90 (>60 ml/min/1.73 sqM) Est GFR (CKD-EPI)NonAf >90 (>60 ml/min/1.73 sqM) Glucose 103 H (74-99) mg/dL Plasma Lactic Acid Jeremy 0.7 (0.7-2.0) mmol/L Calcium 9.0 (8.4-10.2) mg/dL Total Bilirubin 0.5 (0.2-1.3) mg/dL AST 18 (14-36) U/L ALT 16 (4-34) U/L Alkaline Phosphatase 63 (38-126) U/L Total Protein 7.7 (6.3-8.2) g/dL Albumin 4.3 (3.5-5.0) g/dL Lipase 36 (23-300) U/L Urine Color Urine Appearance (Clear) Urine pH (5.0-8.0) Ur Specific [place] (1.001-1.035) Urine Protein (Negative) Urine Glucose (UA) (Negative) Urine Ketones (Negative) Urine Blood (Negative) Urine Nitrite (Negative) Urine Bilirubin (Negative) Urine Urobilinogen (<2.0) mg/dL Ur Leukocyte Esterase (Negative) Urine WBC (0-5) /hpf Ur Squamous Epith Cells (0-4) /hpf Urine Bacteria (None) /hpf Urine HCG, Qual (Not Detectd) Disposition Clinical Impression: Cholelithiasis, Acute cholecystitis Disposition: ADMITTED IP TO THIS HOSP Condition: Fair Referrals: Yeimy Guzman MD [Primary Care Provider] - 1-2 days Time of Disposition: 12:41
[2022-12-31] MEDS: SODIUM CHLORIDE 0.9% 1,000 ML IV SCH (14:26)
[2022-12-31] MEDS: PIPERACILLIN-TAZOBACTAM 3.375 GM in SODIUM CHLORIDE 0.9% 100 ML IVPB SCH (14:59)
[2022-12-31] MEDS: ONDANSETRON 4 MG/2 ML VIAL IVP PRN (18:28)
[2023-01-01] MEDS: PIPERACILLIN-TAZOBACTAM 3.375 GM in SODIUM CHLORIDE 0.9% 100 ML IVPB SCH ×5 (01:00→23:46)
[2023-01-01] MEDS: SODIUM CHLORIDE 0.9% 1,000 ML IV SCH ×2 (01:05→08:16)
[2023-01-01] MEDS: ONDANSETRON 4 MG/2 ML VIAL IVP PRN ×2 (09:18→17:06)
[2023-01-01] MEDS ORDERED: KETOROLAC 15 MG/ML 1 ML VIAL IVP PRN (11:56)
[2023-01-01] MEDS ORDERED: KETOROLAC 15 MG/ML 1 ML VIAL IVP SCH (12:00)
--- NOTE | 2023-01-01 12:01 | P.GSHP ---
History of Present Illness H&P Date: 01/01/23 CHIEF COMPLAINT: Back pain and abdominal HISTORY OF PRESENT ILLNESS: This is a 22-year-old female complains right upper quadrant abdominal pain and middle back pain that started yesterday. She repor ts that she is having pain intermittently for about one month. She had initially came to the ER on 12/24/2022 and was found to have gallstones and was discharged from the ER. Patient reports that pain starts in the middle of her back and radiates into the right upper quadrant. She's been having nausea no vomiting. She denies any pain after eating. She reports symptoms are worse at night. She has been having chills sweats. Denies any change in bowel movements. Denies any prior surgical history. She reports being diagnosed with a heart murmur during her childhood. She is supposed to have follow-up in the office with cardiology about a year ago and missed that appointment. She has no t had any workup. She denies any chest pain shortness breath. Computed tomography scan showed evidence of mild gallbladder wall thickening concerning for acute cholecystitis. PAST MEDICAL HISTORY: Heart murmur, hypothyroidism PAST SURGICAL HISTORY: none MEDICATIONS: See below ALLERGIES: See below SOCIAL HISTORY: No illicit drug use. REVIEW OF SYSTEMS: CONSTITUTIONAL: Denies fever or chills. HEENT: Denies blurred vision, vision changes, or eye pain. Denies hemoptysis CARDIOVASCULAR: Denies chest pain or pressure. RESPIRATORY: No shortness of breath. GASTROINTESTINAL: See HPI for pertinent findings HEMATOLOGIC: Denies bleeding disorders. GENITOURINARY: Denies any blood in urine or increased urinary frequency. SKIN: Denies pruitis. Denies rash. PHYSICAL EXAM: VITAL SIGNS: Reviewed GENERAL: Well-developed in no acute distress. ABDOMEN: Soft. Nondistended. RUQ tenderness with palpation NEUROLOGIC: Alert and oriented. Cranial nerves II through XII grossly intact. LABORATORY DATA: WBC 9.0 HgB 13.9 platelets 265 Sodium 136 potassium 4.0 creatinine 0.83 Lactic acid 0.7 Total bili 0.5 AST 18 ALT 16 lipase 36 IMAGING: Gallbladder ultrasound cholelithiasis reported positive Guevara sign. Findings are equivocal for acute cholecystitis. CT abdomen and pelvis mild gallbladder wall thickening concerning for acute cholecystitis. Normal appendix. No obstructive uropathy. ASSESSMENT: 1. Acute cholecystitis with evidence of cholelithiasis and positive Guevara sign on ultrasound PLAN: -Patient scheduled for laparoscopic cholecystectomy today with Dr. Alicea -Keep patient nothing by mouth -Cardiology consulted for cardiac risk assessment. Patient has a known history of childhood heart murmur. However, missed appointment outpatient with stunt person. -Continue antibiotics -Continue supportive Physician Motorized Squad Captain note has been reviewed by physician. Signing provider agrees with the documented findings, assessment, and plan of care. I have personally seen and examined the patient, reviewed the SONG WRITER /PAs history, exam and MDM and agree with the assessment and plan as written. Based on total visit time, I have performed more than 50% of the visit. As above: Patient with ultrasound and CAT scan showing acute cholecystitis. Pain is slightly improved today. No change in the color of her skin urine or stool. Options reviewed. We'll proceed with laparoscopic, possible open cholecystectomy at this time. Risks of bleeding, infection, bile leak, bile duct injury, retained common bile duct stone, trocar injury, conversion to an open procedure, hernia, anesthesia related complications were reviewed. The patient understands and wishes to proceed. Past Medical History Past Medical History: No Reported History History of Any Multi-Drug Resistant Organisms: None Reported Past Surgical History: No Surgical Hx Reported Past Psychological History: Anxiety Smoking Status: Never smoker Past Alcohol Use History: None Reported Past Drug Use History: None Reported Medications and Allergies Home Medications Medication Instructions Recorded Confirmed Type Ergocalciferol [Vitamin D2 (1250 1,250 mcg PO MO 12/31/22 12/31/22 History Mcg = 81150 Iu)] Levothyroxine Sodium [Synthroid] 25 mcg PO DAILY 12/31/22 12/31/22 History Allergies Allergy/AdvReac Type Severity Reaction Status Date / Time No Known Allergies Allergy Verified 12/31/22 17:17 Surgical - Exam Vital Signs Temp Pulse Resp BP Pulse Ox 98 F 60 18 112/70 100 12/31/22 09:30 12/31/22 09:30 12/31/22 09:30 12/31/22 09:30 12/31/22 09:30 Results - Labs 12/31/22 10:01 12/31/22 10:01 Abnormal Lab Results - Last 24 Hours (Table) 12/31/22 12/31/22 Range/Units 10:01 10:01 Sodium 136 L (137-145) mmol/L Glucose 103 H (74-99) mg/dL Urine WBC 10 H (0-5) /hpf Ur Squamous Epith Cells 10 H (0-4) /hpf Urine Bacteria Many H (None) /hpf Diabetes panel 12/31/22 Range/Units 10:01 Sodium 136 L (137-145) mmol/L Potassium 4.0 (3.5-5.1) mmol/L Chloride 104 (98-107) mmol/L Carbon Dioxide 24 (22-30) mmol/L BUN 16 (7-17) mg/dL Creatinine 0.83 (0.52-1.04) mg/dL Glucose 103 H (74-99) mg/dL Calcium 9.0 (8.4-10.2) mg/dL AST 18 (14-36) U/L ALT 16 (4-34) U/L Alkaline Phosphatase 63 (38-126) U/L Total Protein 7.7 (6.3-8.2) g/dL Albumin 4.3 (3.5-5.0) g/dL Calcium panel 12/31/22 Range/Units 10:01 Calcium 9.0 (8.4-10.2) mg/dL Albumin 4.3 (3.5-5.0) g/dL Pituitary panel 12/31/22 Range/Units 10:01 Sodium 136 L (137-145) mmol/L Potassium 4.0 (3.5-5.1) mmol/L Chloride 104 (98-107) mmol/L Carbon Dioxide 24 (22-30) mmol/L BUN 16 (7-17) mg/dL Creatinine 0.83 (0.52-1.04) mg/dL Glucose 103 H (74-99) mg/dL Calcium 9.0 (8.4-10.2) mg/dL Adrenal panel 12/31/22 Range/Units 10:01 Sodium 136 L (137-145) mmol/L Potassium 4.0 (3.5-5.1) mmol/L Chloride 104 (98-107) mmol/L Carbon Dioxide 24 (22-30) mmol/L BUN 16 (7-17) mg/dL Creatinine 0.83 (0.52-1.04) mg/dL Glucose 103 H (74-99) mg/dL Calcium 9.0 (8.4-10.2) mg/dL Total Bilirubin 0.5 (0.2-1.3) mg/dL AST 18 (14-36) U/L ALT 16 (4-34) U/L Alkaline Phosphatase 63 (38-126) U/L Total Protein 7.7 (6.3-8.2) g/dL Albumin 4.3 (3.5-5.0) g/dL
[2023-01-01] MEDS ORDERED: ACETAMINOPHEN TAB 325 MG TAB PO PRN (12:47)
[2023-01-01] MEDS ORDERED: ERGOCALCIFEROL 1,250 MCG (50,000 IU) CAPSULE PO SCH (13:00)
[2023-01-01] MEDS ORDERED: LACTATED RINGERS 1,000 ML IV ONE ×2 (13:05→14:49)
[2023-01-01] MEDS ORDERED: ACETAMINOPHEN TAB 500 MG TAB ONE (13:11)
[2023-01-01] MEDS ORDERED: HEPARIN SODIUM,PORCINE/PF 5,000 UNIT/0.5 ML SYRINGE SQ ONE (13:11)
--- NOTE | 2023-01-01 13:15 | P.CRDCN ---
History of Present Illness History of present illness: HISTORY OF PRESENT ILLNESS: This is a 22-year-old female with a past medical history significant for anxiety and hypothyroidism. Patient does not follow with a inspector. We have been asked to see the patient in consultation for cardiac risk assessment. Patient e billy at the bedside. Patient has been having abdominal pain for about a month. She is scheduled for cholecystectomy today with general surgery. She currently denies chest pain or pressure. She reports chest pain when she has anxiety. Patient states she has episodes where she feels like she cant catch her breath and feels like her heart is stopping for a couple seconds. Patient states she had an EKG performed at her primary care physician's office which she believes was found to be abnormal. She states that she was referred to a inspector however she never made an appointment to see one. Patient states she is fairly active and can walk for one block or up a flight of stairs without shortness of breath or chest pain. * EKG reveals sinus mechanism with no signs of acute ischemia. Low voltage QRS. * CT abdomen and pelvis: Mild gallbladder wall thickening concerning for acute cholecystitis. * Laboratory data: WBC 9.0. Hemoglobin 13.9. Platelet count 260. Sodium 136. Potassium 4.0. BUN 16. Creatinine 0.83. * Current home cardiac medications include none REVIEW OF SYSTEMS: At the time of my exam: CONSTITUTIONAL: Denies fever or chills. HEENT: Denies blurred vision, vision changes, or eye pain. Denies hemoptysis CARDIOVASCULAR: Denies chest pain. Denies orthopnea. Denies PND. Denies palpitations RESPIRATORY: Denies shortness of breath. GASTROINTESTINAL: + abdominal pain. Denies nausea or vomiting. HEMATOLOGIC: Denies bleeding disorders. GENITOURINARY: Denies any blood in urine. SKIN: Denies pruitis. Denies rash. PHYSICAL EXAM: VITAL SIGNS: Reviewed. GENERAL: Well-developed in no acute distress. HEENT: Head is normocephalic. Pupils are equal, round. Sclerae anicteric. Mucous membranes of the mouth are moist. Neck supple. No JVD or thyromegaly LUNGS: Respirations even and unlabored. Lungs essentially clear to auscultation bilaterally. HEART: Regular rate and rhythm. S1 and S2 heard. No audible murmur noted. ABDOMEN: Soft. Nondistended. Right upper quadrant abdominal pain. EXTREMITIES: Normal range of motion. No clubbing or cyanosis. Peripheral pulses intact. No lower extremity edema NEUROLOGIC: Awake and alert. Oriented x 3. ASSESSMENT: Abdominal pain Gallbladder wall thickening with possible acute cholecystitis Anxiety Hypothyroidism Former nicotine dependence PLAN: Obtain 2-D echo to assess cardiac structure and function Patient is scheduled for laparoscopic cholecystectomy with Dr. Alicea today The patient is cleared to undergo surgery from a cardiac standpoint Further recommendations pending patient's course Nurse practitioner note has been reviewed by physician. Signing provider agrees with the documented findings, assessment, and plan of care. Past Medical History Past Medical History: No Reported History History of Any Multi-Drug Resistant Organisms: None Reported Past Surgical History: No Surgical Hx Reported Past Psychological History: Anxiety Smoking Status: Never smoker Past Alcohol Use History: None Reported Past Drug Use History: None Reported Medications and Allergies Home Medications Medication Instructions Recorded Confirmed Type Ergocalciferol [Vitamin D2 (1250 1,250 mcg PO MO 12/31/22 12/31/22 History Mcg = 60100 Iu)] Levothyroxine Sodium [Synthroid] 25 mcg PO DAILY 12/31/22 12/31/22 History Allergies Allergy/AdvReac Type Severity Reaction Status Date / Time No Known Allergies Allergy Verified 12/31/22 17:17 Physical Exam Vitals: Vital Signs Temp Pulse Pulse Resp BP BP Pulse Ox 01/01/23 07:00 98.2 F 67 14 107/71 100 01/01/23 00:45 98.0 F 83 18 122/83 96 12/31/22 19:23 98.2 F 77 14 105/68 99 12/31/22 15:00 98.4 F 66 16 110/71 98 12/31/22 13:10 97.8 F 64 18 112/72 99 12/31/22 11:42 97.7 F 62 18 114/63 97 Intake and Output 12/31/22 01/01/23 01/01/23 22:59 06:59 14:59 Other: Voiding Method Toilet # Voids 1 Results 12/31/22 10:01 12/31/22 10:01 Current Medications Generic Name Dose Route Start Last Admin Trade Name Freq PRN Reason Stop Dose Admin Hydromorphone HCl 0.5 mg 12/31/22 12:48 12/31/22 22:55 Hydromorphone 0.5 Mg/0.5 Ml Syringe IVP 0.5 mg Q3HR PRN Administration Moderate Pain (Scale 4 to 6) Piperacillin Sod/Tazobactam 100 mls @ 25 mls/hr 12/31/22 16:00 01/01/23 08:16 Sod 3.375 gm/ Sodium Chloride IVPB 25 mls/hr Q8HR BECKY Administration Protocol Sodium Chloride 1,000 mls @ 75 mls/hr 12/31/22 13:00 01/01/23 08:16 Saline 0.9% IV 75 mls/hr .[id number] BECKY Administration Naloxone HCl 0.2 mg 12/31/22 12:48 Naloxone 0.4 Mg/Ml 1 Ml Vial IV Q2M PRN Opioid Reversal Ondansetron HCl 4 mg 12/31/22 12:48 01/01/23 09:18 Ondansetron 4 Mg/2 Ml Vial IVP 4 mg Q8HR PRN Administration Nausea And Vomiting Intake and Output 12/31/22 01/01/23 01/01/23 22:59 06:59 14:59 Other: Voiding Method Toilet # Voids 1 12/31/22 10:01 12/31/22 10:01
[2023-01-01] MEDS ORDERED: ONDANSETRON 4 MG/2 ML VIAL IVP ONE (13:27)
[2023-01-01] MEDS ORDERED: DEXAMETHASONE SOD PHOSPHATE 4 MG/ML 1 ML VIAL IVP ONE (13:27)
[2023-01-01] MEDS ORDERED: HEPARIN SODIUM,PORCINE 5,000 UNIT/ML 1 ML VIAL SQ ONE (13:28)
[2023-01-01] MEDS ORDERED: SCOPOLAMINE 1 MG/72 HR PATCH TRANSDERM ONE (13:28)
[2023-01-01] MEDS ORDERED: LIDOCAINE 2% INJ 20 MG/ML (2 ML VIAL) ONE (13:40)
[2023-01-01] MEDS ORDERED: fentaNYL (PF) 50 MCG/ML 2 ML AMP ONE (13:40)
[2023-01-01] MEDS ORDERED: HYDROmorphone (PF) 1 MG/ML ONE (13:40)
[2023-01-01] MEDS ORDERED: KETOROLAC 30 MG/ML 1 ML VIAL ONE (13:40)
[2023-01-01] MEDS ORDERED: MIDAZOLAM 2 MG/2 ML VIAL ONE (13:40)
[2023-01-01] MEDS ORDERED: GLYCOPYRROLATE 0.2 MG/ML 2 ML VIAL ONE (13:40)
[2023-01-01] MEDS ORDERED: ROCURONIUM 10 MG/ML (5 ML VIAL) IV ONE (13:40)
[2023-01-01] MEDS ORDERED: PROPOFOL 10 MG/ML 20 ML VIAL IV ONE (13:40)
[2023-01-01] MEDS ORDERED: NEOSTIGMINE 1 MG/ML 10 ML VIAL ONE (13:40)
[2023-01-01] MEDS ORDERED: SUCCINYLCHOLINE CHLORIDE 200 MG/10 ML VIAL IV ONE (13:40)
[2023-01-01] MEDS ORDERED: PHENYLEPHRINE-0.9% NACL SYG 1,000 MCG/10 ML SYRINGE ONE (13:40)
--- NOTE | 2023-01-01 13:40 | P.CONS ---
History of Present Illness - Reason for Consult Consult date: 01/01/23 Medical management acute cholecystitis - History of Present Illness This is a 22-year-old female who presented to the emergency department with increased abdominal pain. Patient was here approximately one week ago and sent home and was found to have gallstones. Patient reports the pain intensified and continued to worsen and having increased nausea and inability to tolerate oral intake and the pain became too intense urge patient came to the ER for further evaluation. CT abdomen was done in the ER showing mild gallbladder wall thickening concerning for acute cholecystitis with a normal appendix and no obstructive uropathy. Patient was admitted to surgery services with cardiology on consult as patient had a murmur as a child for cardiac clearance for surgery and patient reports she follows with Dr. Guzman in the outpatient setting with past medical history of hypothyroidism and low vitamin D. Patient was recently started on Synthroid as well as vitamin D supplementation. Will resume appropriate home medications. Patient is currently nothing by mouth and scheduled for surgery later this afternoon. Patient continues to have episodes of feeling flushed and hot flashes with dizziness and lightheadedness with the increased pain. Discussed with boyfriend as well as mother at the bedside and patient has a low tolerance to pain and patient also reported she did not like the effects of Dilaudid and will discontinue and adjust medications. Patient to continue on gentle IV hydration and will resume diet after surgery. Awaiting surgical report. Review Of Systems: Constitutional: No fever, no chills, no night sweats. No weight change. No weakness, fatigue or lethargy. No daytime sleepiness. EENT: No headache. No blurred vision or double vision, no loss of vision. No loss of Hearing, no ringing in the ears, no dizziness. No nasal drainage or congestion. No epistaxis. No sore throat. Lungs: No shortness of breath, cough, no sputum production. No wheezing. Cardiovascular: No chest pain, no lower extremity edema. No palpitations. No paroxysmal nocturnal dyspnea. No orthopnea. No lightheadedness or dizziness. No syncopal episodes. Abdominal: Reports abdominal pain. Reports increased nausea, no vomiting. No diarrhea. No constipation. No bloody or tarry stools.. Reports loss of appetite. Genitourinary: No dysuria, increased frequency, urgency. No urinary retention. Musculoskeletal: No myalgias. No muscle weakness, no gait dysfunction, no frequent falls. No back pain. No neck pain. Integumentary: No wounds, no lesions. No rash or pruritus. No unusual bruising. No change in hair or nails. Neurologic: No aphasia. No facial droop. No change in mentation. No head injury. No headache. No paralysis. No paresthesia. Psychiatric: No depression. No anxiety. No mood swings. Endocrine: No abnormal blood sugars. No weight change. No excessive sweating or thirst. No cold intolerance. PHYSICAL EXAMINATION: GENERAL: The patient is alert and oriented x4, Well developed, well nourished. Obese HEENT: Pupils are round and equally reacting to light. EOMI. no scleral icterus. No conjunctival pallor. Normocephalic, atraumatic. No pharyngeal erythema. No th yromegaly. CARDIOVASCULAR: S1 and S2 muffled PULMONARY: diminished breath sounds bilaterally with no wheezing or rhonchi noted. ABDOMEN: soft. Mildly tender on exam. obese. non-distended, normoactive bowel sounds. No palpable organomegaly. MUSCULOSKELETAL: No joint swelling or deformity. EXTREMITIES: No cyanosis, clubbing, or pedal edema. NEUROLOGICAL: Gross neurological examination did not reveal any focal deficits. SKIN: No rashes. Assessment: Abdominal pain, likely secondary to acute cholecystitis with evidence of cholelithiasis Hypothyroidism Vitamin D deficiency Obesity with a BMI of 32.1 GI prophylaxis DVT prophylaxis Full code Plan: Patient will be continued on IV hydration and nothing by mouth right now as patient is scheduled to undergo laparoscopic cholecystectomy with Dr. Alicea sometime today Cardiology has been consulted ordering a 2-D echo and low risk for surgical intervention and medically stable as patient did have history of heart murmur as a child with no significant follow-up and has not had a workup Labs reviewed and will follow-up with repeat labs in a.m. Patient not tolerating the Dilaudid very well and does not like the effects it makes on her and will change to Toradol as well as Tylenol and adjust medications as needed Will order incentive spirometer and encourage the patient increased activity as tolerated and continued incentive spirometer use at least 10 times every hour while awake Thank you currently for this consultation. We will continue to follow with general surgery during hospitalization The impression and plan of care has been dictated by Yvette Matute, nurse practitioner as directed. Dr. Airam MD I have performed a history and examination and MDM of this patient, discussed the same with the dictator, and agree with the dictator's assessment and plan as written ,documented as a scribe. Based on total visit time, I have performed more than 50% of the visit. Any additional findings or plans will be noted. Past Medical History Past Medical History: No Reported History History of Any Multi-Drug Resistant Organisms: None Reported Past Surgical History: No Surgical Hx Reported Past Psychological History: Anxiety Smoking Status: Never smoker Past Alcohol Use History: None Reported Past Drug Use History: None Reported Medications and Allergies Home Medications Medication Instructions Recorded Confirmed Type Ergocalciferol [Vitamin D2 (1250 1,250 mcg PO MO 12/31/22 12/31/22 History Mcg = 42621 Iu)] Levothyroxine Sodium [Synthroid] 25 mcg PO DAILY 12/31/22 12/31/22 History Allergies Allergy/AdvReac Type Severity Reaction Status Date / Time No Known Allergies Allergy Verified 12/31/22 17:17 Physical Exam Vitals: Vital Signs Temp Pulse Pulse Resp BP BP Pulse Ox 01/01/23 07:00 98.2 F 67 14 107/71 100 01/01/23 00:45 98.0 F 83 18 122/83 96 12/31/22 19:23 98.2 F 77 14 105/68 99 12/31/22 15:00 98.4 F 66 16 110/71 98 12/31/22 13:10 97.8 F 64 18 112/72 99 12/31/22 11:42 97.7 F 62 18 114/63 97 Intake and Output 12/31/22 01/01/23 01/01/23 22:59 06:59 14:59 Other: # Voids 1 Results CBC & Chem 7: 12/31/22 10:01 12/31/22 10:01 Labs: Abnormal Lab Results - Last 24 Hours (Table) 12/31/22 12/31/22 Range/Units 10:01 10:01 Sodium 136 L (137-145) mmol/L Glucose 103 H (74-99) mg/dL Urine WBC 10 H (0-5) /hpf Ur Squamous Epith Cells 10 H (0-4) /hpf Urine Bacteria Many H (None) /hpf Assessment and Plan Time with Patient: Greater than 30
[2023-01-01] MEDS ORDERED: BUPIVACAINE (PF) 0.25% 30 ML VIAL SQ ONE ×2 (14:10)
[2023-01-01] MEDS ORDERED: HYDROcodone/APAP 5-325MG 1 EACH TAB PO PRN (14:49)
--- NOTE | 2023-01-01 14:50 | P.OP ---
Date of Procedure: 01/01/23 Procedure(s) Performed: PREOPERATIVE DIAGNOSIS: Acute cholecystitis POSTOPERATIVE DIAGNOSIS: Same PROCEDURE: Laparoscopic cholecystectomy SURGEON: Nixon EBL: Minimal see anesthesia record ANESTHESIA: Gen. COMPLICATIONS: None OPERATIVE PROCEDURE: The patient was brought and placed on the operating room table in the supine position. The patient was placed under general anesthesia at that time. The abdomen was prepped and draped in the usual sterile fashion. A small vertical infraumbilical incision was made. The fascia was grasped with the Chitra forceps. The fascia was retracted anteriorly. The Veress needle was advanced into the peritoneal cavity. The saline drop test was normal. Insufflation took place up to 15 mmHg. A 5 mm optical trocar was advanced and the peritoneal cavity. 2 additional 5 mm trochars were placed in the right upper quadrant under direct visualization. A 12 mm trocar was advanced into the epigastric incision site. The gallbladder was acutely inflamed with gallbladder wall edema noted. The gallbladder was retracted superiorly and laterally. The peritoneum overlying the infundibulum was bluntly dissected. The patient's cystic duct was visualized. The junction between the cystic duct common and hepatic duct was identified. The critical view of safety was achieved after blunt dissection. The cystic duct was then divided after placement of 3 12 mm clips on the patient's side and one on the specimen side. The cystic artery was identified and clipped as well. A small vessel was seen along the gallbladder fossa and clipped as well. The gallbladder was then removed from the liver bed using electrocautery. The gallbladder was then removed from the epigastric trocar site with an Endo Catch bag. The gallbladder fossa was irrigated with saline. There was no evidence of any bleeding or biliary drainage seen. The fascia at the 12 millimeter site was closed using a Suleiman-Doris 0 Vicryl stitch. The trochars were then removed. The skin at all 4 sites was closed using a 4-0 Monocryl stitch. Skin glue was utilized on the incision sites. At the end of this procedure the sponge and needle counts were correct. DISPOSITION: Stable to the recovery room
[2023-01-01] MEDS: PANTOPRAZOLE 40 MG/10 ML VIAL IVP SCH ×2 (17:03→19:57)
[2023-01-01] MEDS: HEPARIN SODIUM,PORCINE/PF 5,000 UNIT/0.5 ML SYRINGE SQ SCH ×2 (17:04→23:46)
[2023-01-01 21:05] VITALS: RESP 16
[2023-01-02] MEDS: SODIUM CHLORIDE 0.9% 1,000 ML IV SCH (06:21)
[2023-01-02] MEDS ORDERED: LEVOTHYROXINE 25 MCG TAB PO SCH (06:30)
[2023-01-02] MEDS: PANTOPRAZOLE 40 MG/10 ML VIAL IVP SCH (09:12)
[2023-01-02] MEDS: PIPERACILLIN-TAZOBACTAM 3.375 GM in SODIUM CHLORIDE 0.9% 100 ML IVPB SCH (09:12)
[2023-01-02] MEDS: HEPARIN SODIUM,PORCINE/PF 5,000 UNIT/0.5 ML SYRINGE SQ SCH (09:13)
--- NOTE | 2023-01-02 10:56 | P.PN ---
Subjective HISTORY OF PRESENT ILLNESS: This is a 22-year-old female with a past medical history significant for anxiety and hypothyroidism. Patient does not follow with a medical management trainer. We have been asked to see the patient in consultation for cardiac risk assessment. Patient examined at the bedside. Patient has been having abdominal pain for about a month. She is scheduled for cholecystectomy today with general surgery. She currently denies chest pain or pressure. She reports chest pain when she has anxiety. Patient states she has episodes where she feels like she cant catch her breath and feels like her heart is stopping for a couple seconds. Patient states she had an EKG performed at her primary care physician's office which she believes was found to be abnormal. She states that she was referred to a medical management trainer however she never made an appointment to see one. Patient states she is fairly active and can walk for one block or up a flight of stairs without shortness of breath or chest pain. * EKG reveals sinus mechanism with no signs of acute ischemia. Low voltage QRS. * CT abdomen and pelvis: Mild gallbladder wall thickening concerning for acute cholecystitis. * Laboratory data: WBC 9.0. Hemoglobin 13.9. Platelet count 260. Sodium 136. Potassium 4.0. BUN 16. Creatinine 0.83. * Current home cardiac medications include none 01/02/2023 He is status post laparoscopic cholecystectomy. Patient examined this morning at the bedside. She denies any chest pain or pressure. She denies any shortness of breath. Vital signs are stable. 2-D echo is currently pending. PHYSICAL EXAM: VITAL SIGNS: Reviewed. GENERAL: Well-developed in no acute distress. HEENT: Head is normocephalic. Pupils are equal, round. Sclerae anicteric. Mucous membranes of the mouth are moist. Neck supple. No JVD or thyromegaly LUNGS: Respirations even and unlabored. Lungs essentially clear to auscultation bilaterally. HEART: Regular rate and rhythm. S1 and S2 heard. No audible murmur noted. ABDOMEN: Soft. Nondistended. Surgical pain noted. EXTREMITIES: Normal range of motion. No clubbing or cyanosis. Peripheral pulses intact. No lower extremity edema NEUROLOGIC: Awake and alert. Oriented x 3. ASSESSMENT: Abdominal pain Gallbladder wall thickening with possible acute cholecystitis Anxiety Hypothyroidism Former nicotine dependence PLAN: Patient is stable from a cardiac standpoint. She may be discharged home today. We will sign off. Please reconsult if needed. Nurse practitioner note has been reviewed by physician. Signing provider agrees with the documented findings, assessment, and plan of care. Objective - Vital Signs Vital signs: Vital Signs Temp 98.3 F 01/02/23 08:00 Pulse 52 L 01/02/23 08:00 Resp 16 01/02/23 08:00 BP 102/63 01/02/23 08:00 Pulse Ox 99 01/02/23 08:00 FiO2 Intake & Output 01/01/23 01/02/23 01/02/23 18:59 06:59 18:59 Intake Total 2150 Output Total 5 Balance 2145 Intake: IV 1250 Intake, IV Titration 900 Amount Sodium Chloride 0.9% 1, 900 000 ml @ 75 mls/hr IV . [id number] [facility] Rx#:[id number] Output: Estimated Blood Loss 5 Other: Voiding Method Toilet Toilet Toilet # Voids 2 3 - Labs CBC & Chem 7: 12/31/22 10:01 12/31/22 10:01 Labs: Microbiology - Last 24 Hours (Table) 12/31/22 13:05 Blood Culture - Preliminary Blood 12/31/22 12:50 Blood Culture - Preliminary Blood
[2023-01-02] MEDS: ONDANSETRON 4 MG/2 ML VIAL IVP PRN (11:17)
--- NOTE | 2023-01-02 11:43 | CA ---
Transthoracic Echo Report Name: Yessica Masterson Age: 22 Gender: F : 2000 Exam Date: 01/02/2023 09:53 Exam Location: [facility] Ht (in): 61 Wt (lb): 170 Ordering Physician: Shellie King Attending/Referring Phys: [id number], Fernando Forest Aide Astrid Nelson RDCS Procedure CPT: Indications: LV function Cardiac Hx: Technical Quality: Fair Contrast 1: Total Dose (mL): Contrast 2: Total Dose (mL): MEASUREMENTS (Male / Female) Normal Values 2D ECHO LV Diastolic Diameter PLAX 4.2 cm 4.2 - 5.9 / 3.9 - 5.3 cm LV Systolic Diameter PLAX 2.6 cm IVS Diastolic Thickness 0.9 cm 0.6 - 1.0 / 0.6 - 0.9 cm LVPW Diastolic Thickness 1.0 cm 0.6 - 1.0 / 0.6 - 0.9 cm LV Relative Wall Thickness 0.5 RV Internal Dim ED PLAX 3.5 cm LA Volume 40.2 cm??? 18 - 58 / 22 - 52 cm??? M-MODE Aortic Root Diameter MM 2.3 cm LA Systolic Diameter MM 3.3 cm LA Ao Ratio MM 1.4 AV Cusp Separation MM 1.9 cm DOPPLER AV Peak Velocity 142.6 cm/s AV Peak Gradient 8.1 mmHg AV Mean Velocity 96.0 cm/s AV Mean Gradient 4.3 mmHg AV Velocity Time Integral 29.2 cm LVOT Peak Velocity 115.5 cm/s LVOT Peak Gradient 5.3 mmHg LVOT Velocity Time Integral 26.3 cm MV Area PHT 4.4 cm??? Mitral E Point Velocity 102.6 cm/s Mitral A Point Velocity 64.1 cm/s Mitral E to A Ratio 1.6 MV Deceleration Time 171.7 ms MV E' Velocity 12.3 cm/s Mitral E to MV E' Ratio 8.3 TR Peak Velocity 200.1 cm/s TR Peak Gradient 16.0 mmHg Right Ventricular Systolic Press 20.6 mmHg FINDINGS Left Ventricle Mildly increased left ventricular wall thickness. Left ventricular cavity size normal. Normal left ventricular diastolic filling pattern. Normal left ventricular systolic function with no obvious regional wall motion abnormalities. Left ventricular ejection fraction is estimated at 55-60 %. Right Ventricle Mild right ventricular dilatation. Normal right ventricular function. Right ventricular systolic pressure within normal limits. Right Atrium Normal right atrial size. Left Atrium Normal left atrial size. Mitral Valve Structurally normal mitral valve. No evidence for mitral valve prolapse. No mitral stenosis. Trace to mild mitral regurgitation. Aortic Valve Trileaflet aortic valve. No aortic valve stenosis or regurgitation. Tricuspid Valve Structurally normal tricuspid valve. Mild tricuspid regurgitation. Pulmonic Valve Structurally normal pulmonic valve. Trace pulmonic regurgitation. Pericardium No pericardial effusion. Aorta Normal size aortic root and proximal ascending aorta. CONCLUSIONS Left ventricular ejection fraction 55-60% RVSP 20 Mild mitral regurgitation Mild tricuspid regurgitation Previewed by: Dr. Miguel Mckinney DO (Electronically Signed) Final Date: 02 January 2023 11:40
[2023-01-02] MEDS ORDERED: diphenhydrAMINE 25 MG CAP PO PRN (13:59)
--- NOTE | 2023-01-02 15:12 | P.DS ---
Providers Date of admission: 12/31/22 12:56 Expected date of discharge: 01/02/23 Attending physician: Ulices Alicea Consults: 01/01/23 09:19 Consult Physician Routine Consulting Provider: Melanie Perales Consult Reason/Comments: medical mangement Do you want consulting provider notified?: Yes Primary care physician: Yeimy Guzman Hospital Course: Discharge diagnosis 1. Acute cholecystitis status post laparoscopic cholecystectomy Hospital course The 23-year-old female presented with right upper quadrant abdominal pain and back pain. She had a computed tomography scan that showed mild gallbladder wall thickening and concerning for acute cholecystitis. Patient is status post laparoscopic cholecystectomy. She tolerated surgery well. Her pain is controlled. She has been up and ambulating. She is tolerating diet. She's afebrile. Incision sites clean dry and intact. She is stable for discharge. Please refer to chart for any further details. Physician Gunnery/Ordnance Officer note has been reviewed by physician. Signing provider agrees with the documented findings, assessment, and plan of care. Patient Condition at Discharge: Stable Plan - Discharge Summary New Discharge Prescriptions: New Ibuprofen [Motrin] 600 mg PO Q8HR PRN #30 tab PRN Reason: Pain Acetaminophen Tab [Tylenol] 1,000 mg PO Q6HR PRN #30 tablet PRN Reason: Pain Continue Ergocalciferol [Vitamin D2 (1250 Mcg = 18435 Iu)] 1,250 mcg PO MO Levothyroxine Sodium [Synthroid] 25 mcg PO DAILY Discharge Medication List Ergocalciferol [Vitamin D2 (1250 Mcg = 88644 Iu)] 1,250 mcg PO MO 12/31/22 [History] Levothyroxine Sodium [Synthroid] 25 mcg PO DAILY 12/31/22 [History] Acetaminophen Tab [Tylenol] 1,000 mg PO Q6HR PRN #30 tablet 01/02/23 [Rx] Ibuprofen [Motrin] 600 mg PO Q8HR PRN #30 tab 01/02/23 [Rx] Follow up Appointment(s)/Referral(s): Yeimy Guzman MD [Primary Care Provider] - 1-2 days Ulices Alicea MD [Medical Doctor] - 1 Week Activity/Diet/Wound Care/Special Instructions: No lifting over 10 pounds You may shower. No soaking or tub baths for 2 weeks Very light activity until you are reevaluated at your follow up appointment with your surgeon Continue a low fat diet Discharge Disposition: HOME SELF-CARE
[2023-01-02 16:20] VITALS: BP 104/69; PULSE 57; TEMP 98.1
--- NOTE | 2023-01-04 06:34 | P.PN ---
Subjective Progress Note Date: 01/02/23 - Reason for Consult Consult date: 01/01/23 Medical management acute cholecystitis - History of Present Illness This is a 22-year-old female who presented to the emergency department with increased abdominal pain. Patient was here approximately one week ago and sent home and was found to have gallstones. Patient reports the pain intensified and continued to worsen and having increased nausea and inability to tolerate oral intake and the pain became too intense urge patient came to the ER for further evaluation. CT abdomen was done in the ER showing mild gallbladder wall thickening concerning for acute cholecystitis with a normal appendix and no obstructive uropathy. Patient was admitted to surgery services with cardiology on consult as patient had a murmur as a child for cardiac clearance for surgery and patient reports she follows with Dr. Guzman in the outpatient setting with past medical history of hypothyroidism and low vitamin D. Patient was recently started on Synthroid as well as vitamin D supplementation. Will resume appropriate home medications. Patient is currently nothing by mouth and scheduled for surgery later this afternoon. Patient continues to have episodes of feeling flushed and hot flashes with dizziness and lightheadedness with the increased pain. Discussed with boyfriend as well as mother at the bedside and patient has a low tolerance to pain and patient also reported she did not like t he effects of Dilaudid and will discontinue and adjust medications. Patient to continue on gentle IV hydration and will resume diet after surgery. Awaiting surgical report. 01/02/2023 Patient is seen and evaluated and follow-up post laparoscopic cholecystectomy yesterday afternoon. Patient had some nausea this morning although reports is improved and pain is currently controlled. Patient reports some minor discomfort and passing gas. Patient is afebrile with no reports of chest pain or shortness of breath. Patient's diet being advanced per surgery. Patient is medically stable for discharge and discussion of discharged this afternoon if continuing to tolerate diet. Review of systems: Constitutional: No reports of fatigue, fever, or chills Cardiovascular: No reports of chest pain or palpitations Respiratory: No reports of shortness of breath or cough GI: reports of nausea this morning that has resolved, no vomiting, or diarrhea, reports passing gas : No reports of dysuria or retention Neurovascular: No reports of weakness or numbness All medications have been reviewed PHYSICAL EXAMINATION: GENERAL: The patient is alert and oriented x4, Well developed, well nourished. Obese HEENT: Pupils are round and equally reacting to light. EOMI. no scleral icterus. No conjunctival pallor. Normocephalic, atraumatic. No pharyngeal erythema. No thyromegaly. CARDIOVASCULAR: S1 and S2 muffled PULMONARY: diminished breath sounds bilaterally with no wheezing or rhonchi not ed. ABDOMEN: soft. Mildly tender on exam. obese. non-distended, normoactive bowel sounds. No palpable organomegaly. MUSCULOSKELETAL: No joint swelling or deformity. EXTREMITIES: No cyanosis, clubbing, or pedal edema. NEUROLOGICAL: Gross neurological examination did not reveal any focal deficits. SKIN: No rashes. Assessment: Abdominal pain, likely secondary to acute cholecystitis with evidence of cholelithiasis status post laparoscopic cholecystectomy Hypothyroidism Vitamin D deficiency Obesity with a BMI of 32.1 GI prophylaxis DVT prophylaxis Full code Plan: Patient will be continued on pain management per general surgery. Patient is status post laparoscopic cholecystectomy doing relatively well Patient has been up and walking tolerating diet and slowly advancing as patient did have a brief episode of nausea this morning Encouraged incentive spirometer as well as taking home and continuing to use 10 times every hour while awake Patient instructed to follow-up with primary care provider Dr. Guzman this week on discharge. Patient is medically stable for discharge today Thank you currently for this consultation. We will continue to follow with general surgery during hospitalization The impression and plan of care has been dictated by Yvette Matute, nurse practitioner as directed. Dr. Airam MD I have performed a history and examination and MDM of this patient, discussed the same with the dictator, and agree with the dictator's assessment and plan as written ,documented as a scribe. Based on total visit time, I have performed more than 50% of the visit. Any additional findings or plans will be noted. Objective - Vital Signs Vital signs: Vital Signs Temp 98.3 F 01/02/23 08:00 Pulse 52 L 01/02/23 08:00 Resp 16 01/02/23 08:00 BP 102/63 01/02/23 08:00 Pulse Ox 99 01/02/23 08:00 FiO2 Intake & Output 01/01/23 01/02/23 01/02/23 18:59 06:59 18:59 Intake Total 2150 Output Total 5 Balance 2145 Intake: IV 1250 Intake, IV Titration 900 Amount Sodium Chloride 0.9% 1, 900 000 ml @ 75 mls/hr IV . [id number] [facility] Rx#:[id number] Output: Estimated Blood Loss 5 Other: Voiding Method Toilet Toilet Toilet # Voids 2 3 - Labs CBC & Chem 7: 12/31/22 10:01 12/31/22 10:01 Labs: Microbiology - Last 24 Hours (Table) 12/31/22 13:05 Blood Culture - Preliminary Blood 12/31/22 12:50 Blood Culture - Preliminary Blood
== END 2023-01-02 17:04 | disposition home or self-care (01) | DRG 263 ==
LOC: EC 09:27 → 6NMEDSUR 12:56
PROVIDERS: ADMIT Surgery; ATTEND Surgery
PROC: 0FT44ZZ Resection of Gallbladder, Percutaneous Endoscopic Approach (ICD-10-PCS; principal; 2023-01-01 10:40)
DX: K80.00 Calculus of gallbladder with acute cholecystitis without obstruction (principal); E03.9 Hypothyroidism, unspecified; F41.9 Anxiety disorder, unspecified; E66.9 Obesity, unspecified; I08.1 Rheumatic disorders of both mitral and tricuspid valves; Z68.32 Body mass index [BMI] 32.0-32.9, adult; Z79.890 Hormone replacement therapy; Z87.891 Personal history of nicotine dependence; E55.9 Vitamin D deficiency, unspecified
CPT/HCPCS: 36415; 74177; 80053; 81001; 81025; 83605; 83690; 85025; 87040; 88304; 93306; 96361; 96374; 96375; 99285

== ENCOUNTER → 2024-04-03 | Outpatient (CLI) | payer OTHER ==
[2024-04-03 16:00] LABS: ALT 12 U/L (8-44); AST 13 U/L (13-35); Chol/HDL Ratio 2.99 Ratio; LDL Cholesterol,Calculated 77.1 mg/dL (0.0-131.0); VLDL Calculation 13.38 mg/dL (5.00-40.00)
== END | disposition home or self-care (01) ==
LOC: LABWHC1 08:30
PROVIDERS: ATTEND Internal Medicine
DX: E78.2 Mixed hyperlipidemia (principal)
CPT/HCPCS: 36415; 80061; 84450; 84460

== ENCOUNTER 2024-05-23 14:25 | Emergency (ER) | payer OTHER ==
[2024-05-23 15:18] VITALS: RESP 18
[2024-05-23 16:16] LABS: Appearance,Urine Clear (Clear); Bacteria,Urine Rare /hpf; Bilirubin,Urine Negative (Negative); Blood,Urine Large (Negative); Color,Urine Colorless; Glucose,Urine (UA) Negative (Negative); Ketones,Urine Negative (Negative); Leukocyte Esterase,Urine Negative (Negative); Nitrite,Urine Negative (Negative); PH, Urine 5.5 (5.0-8.0); Protein,Urine Negative (Negative); RBC,Urine 7 /hpf (0-5); Specific Gravity,Urine 1.006 (1.001-1.035); Squamous Epithelial Cell,Urine 3 /hpf (0-4); Urobilinogen,Urine <2.0 mg/dL (<2.0); WBC,Urine 4 /hpf (0-5)
--- NOTE | 2024-05-23 16:29 | ED ---
Female Urogenital HPI - General Chief complaint: Vaginal Bleeding Stated complaint: vaginal bleeding/newly Time Seen by Provider: 05/23/24 15:23 Source: patient, RN notes reviewed Mode of arrival: ambulatory Limitations: no limitations - History of Present Illness Initial comments: 23-year-old female presents emergency department chief complaint of vaginal bleeding in early . Patient is G7, seeing Dr. Ryan states that she recently banisters states that she has had some spotting she is concerned about possible miscarriage she is a positive blood type denies any significant back pain minimal abdominal cramping no fevers chills no urinary symptoms. Last Menstrual Period: 04/14/24 - Related Data Home Medications Medication Instructions Recorded Confirmed Ergocalciferol [Vitamin D2 (1250 1,250 mcg PO MO 12/31/22 12/31/22 Mcg = 01347 Iu)] Levothyroxine Sodium [Synthroid] 25 mcg PO DAILY 12/31/22 12/31/22 Previous Rx's Medication Instructions Recorded Acetaminophen Tab [Tylenol] 1,000 mg PO Q6HR PRN #30 tablet 01/02/23 Ibuprofen [Motrin] 600 mg PO Q8HR PRN #30 tab 01/02/23 Allergies Allergy/AdvReac Type Severity Reaction Status Date / Time No Known Allergies Allergy Verified 05/23/24 15:14 Review of Systems ROS Statement: Those systems with pertinent positive or pertinent negative responses have been documented in the HPI. ROS Other: All systems not noted in ROS Statement are negative. Past Medical History Past Medical History: Thyroid Disorder History of Any Multi-Drug Resistant Organisms: None Reported Past Surgical History: Cholecystectomy Past Psychological History: Anxiety Smoking Status: Former smoker Past Alcohol Use History: None Reported Past Drug Use History: None Reported, Marijuana General Exam Limitations: no limitations General appearance: alert, in no apparent distress Head exam: Present: atraumatic, normocephalic, normal inspection Respiratory exam: Present: normal lung sounds bilaterally. Absent: respiratory distress, wheezes, rales, rhonchi, stridor Cardiovascular Exam: Present: regular rate, normal rhythm, normal heart sounds. Absent: systolic murmur, diastolic murmur, rubs, gallop, clicks Back exam: Absent: CVA tenderness (R), CVA tenderness (L) Course Vital Signs 05/23/24 05/23/24 15:14 17:11 Temperature 98.6 F 98.4 F Pulse Rate 73 70 Respiratory 18 18 Rate Blood Pressure 109/65 104/67 O2 Sat by Pulse 99 99 Oximetry Medical Decision Making - Medical Decision Making Was pt. sent in by a medical professional or institution (ANIBAL Maravilla, FLORIST'S DECORATOR, urgent care, hospital, or fci...) When possible be specific @ -No Did you speak to anyone other than the patient for history (EMS, parent, family, police, friend...)? What history was obtained from this source @ -No Did you review nursing and triage notes (agree or disagree)? Why? @ -I reviewed and agree with nursing and triage notes Were old charts reviewed (outside hosp., previous admission, EMS record, old EKG, old radiological studies, urgent care reports/EKG's, fci records)? Report findings @ -No old charts were reviewed Differential Diagnosis (chest pain, altered mental status, abdominal pain women, abdominal pain men, vaginal bleeding, weakness, fever, dyspnea, syncope, headache, dizziness, GI bleed, back pain, seizure, CVA, palpatations, mental health, musculoskeletal)? @ -Differential Abdominal Pain Women: Appendicitis, Cholecystitis, diverticulosis, ischemic bowel, pancreatitis, hepatitis, UTI, gastroenteritis, AAA, incarcerated hernia, bowel obstruction, constipation, inflammatory bowel, hepatitis, peptic ulcer disease, splenic infarction, perforated viscus, vulvitis, ovarian torsion, PID, kidney stone, placenta abruption, this is not meant to be an all-inclusive list EKG interpreted by me (3pts min.). @ -None X-rays interpreted by me (1pt min.). @ -None done CT interpreted by me (1pt min.). @ -None done U/S interpreted by me (1pt. min.). @ -[Ultrasound transvaginal showing no acute intra-abdominal process no evidence of intrauterine at this time What testing was considered but not performed or refused? (CT, X-rays, U/S, labs)? Why? @ -None What meds were considered but not given or refused? Why? @ -None Did you discuss the management of the patient with other professionals (professionals i.e. ANIBAL Maravilla, FLORIST'S DECORATOR, lab, RT, psych nurse, social science analyst, hospice aide, teacher, corporate compliance officer, classification case manager)? Give summary @ -No Was smoking cessation discussed for >3mins.? @ -No Was critical care preformed (if so, how long)? @ -No Were there social determinants of health that impacted care today? How? (Homelessness, low income, unemployed, alcoholism, drug addiction, transporta tion, low edu. Level, literacy, decrease access to med. care, retirement, rehab)? @ -No Was there de-escalation of care discussed even if they declined (Discuss DNR or withdrawal of care, Hospice)? DNR status @ -No What co-morbidities impacted this encounter? (DM, HTN, Smoking, COPD, CAD, Cancer, CVA, ARF, Chemo, Hep., AIDS, mental health diagnosis, sleep apnea, morbid obesity)? @ -None Was patient admitted / discharged? Hospital course, mention meds given and route, prescriptions, significant lab abnormalities, going to OR and other pertinent info. @ -Discharge patient has a low beta-hCG at 8.6 patient will repeat hCG in 2 days patient is a positive blood type patient discharged in stable condition Undiagnosed new problem with uncertain prognosis? @ -No Drug Therapy requiring intensive monitoring for toxicity (Heparin, Nitro, Insulin, Cardizem)? @ -No Were any procedures done? @ -No Diagnosis/symptom? @ -Threat miscarriage Acute, or Chronic, or Acute on Chronic? @ -Acute Uncomplicated (without systemic symptoms) or Complicated (systemic symptoms)? @ -Uncomplicated Side effects of treatment? @ -No Exacerbation, Progression, or Severe Exacerbation? @ -No Poses a threat to life or bodily function? How? (Chest pain, [place], [place], pneumonia, PE, COPD, DKA, ARF, appy, cholecystitis, CVA, Diverticulitis, Homicidal, Suicidal, threat to staff... and all critical care pts) @ -No - Lab Data Lab Results 05/23/24 05/23/24 Range/Units 15:52 15:56 HCG, Quant 8.6 mIU/mL Urine Color Colorless Urine Appearance Clear (Clear) Urine pH 5.5 (5.0-8.0) Ur Specific [place] 1.006 (1.001-1.035) Urine Protein Negative (Negative) Urine Glucose (UA) Negative (Negative) Urine Ketones Negative (Negative) Urine Blood Large H (Negative) Urine Nitrite Negative (Negative) Urine Bilirubin Negative (Negative) Urine Urobilinogen <2.0 (<2.0) mg/dL Ur Leukocyte Esterase Negative (Negative) Urine RBC 7 H (0-5) /hpf Urine WBC 4 (0-5) /hpf Ur Squamous Epith Cells 3 (0-4) /hpf Urine Bacteria Rare H (None) /hpf Disposition Clinical Impression: Threatened miscarriage Disposition: HOME SELF-CARE Condition: Stable Instructions (If sedation given, give patient instructions): Threatened Miscarriage (ED) Additional Instructions: Please return to the Emergency Department if symptoms worsen or any other concerns. Is patient prescribed a controlled substance at d/c from ED?: No Referrals: Yeimy Guzman MD [Primary Care Provider] - 1-2 days Time of Disposition: 16:58
--- NOTE | 2024-05-23 16:45 | US ---
EXAMINATION TYPE: Transabdominal DATE OF EXAM: 05/23/2024 4:30 PM COMPARISON: NONE CLINICAL INDICATION: Female, 23 years old with history of pain; vag bleed in early preg. Hx tubal pre g, & miscarriages TECHNIQUE: Transvaginal (TV) and Transabdominal (TA) with grayscale and color Doppler imaging includi ng first trimester . FINDINGS: EXAM MEASUREMENTS: GESTATIONAL AGE / DATING Physician Established: Not yet established Dates by LMP: (5 weeks/4 days) EDC: 01/19/25 Dates by First Scan: No previous this is first scan Dates by Current Scan for: No IUP seen at this time MATERNAL ANATOMY Uterus: 7.8x3.4x4.6cm Right Ovary: 2.4x1.4x1.7cm Left Ovary: 2.7x1.5x1.8cm Post CDS / Adnexa: wnl Presence of free fluid: no Presence of corpus luteal cyst: no Presence of subchorionic bleed: no GESTATION / SURVEY CRL: no IUP visualized Gestational Sac morphology: no IUP visualized Gestational Sac MSD: no IUP visualized Yolk Sac (normal less than 6mm): no IUP visualized Heart Rate: no IUP visualized Rhythm: no IUP visualized IUP: No IUP seen at this time Date of LMP: 04/14/24 Beta HcG (if available): Not available at this time Thickened endometrium, no IUP visualized IMPRESSION: No evidence of intrauterine gestational sac, correlate with B-hCG. If positive, this could represent early , ectopic or spontaneous . Follow up pelvic ultrasound in 5-7 days a nd serial beta hCG studies are recommended. [facility], , 05/23/2024 4:43 PM
[2024-05-23 17:13] VITALS: BP 104/67; PULSE 70; TEMP 98.4
== END 2024-05-23 17:13 | disposition home or self-care (01) ==
LOC: EC 14:25
DX: O20.0 Threatened abortion (principal); Z87.891 Personal history of nicotine dependence; Z3A.01 Less than 8 weeks gestation of pregnancy
CPT/HCPCS: 36415; 76801; 76817; 81001; 84702; 99284

== ENCOUNTER → 2024-05-26 | Outpatient (CLI) | payer OTHER | END | disposition home or self-care (01) | LOC: LABWHC1 11:30 | PROVIDERS: ATTEND Physician Assistant | DX: O20.0 Threatened abortion (principal); Z3A.00 Weeks of gestation of pregnancy not specified | CPT/HCPCS: 36415; 84702 ==

== ENCOUNTER 2024-06-15 20:24 | Emergency (ER) | payer OTHER ==
[2024-06-15 20:34] VITALS: RESP 18; TEMP 97.9
[2024-06-15 21:01] LABS: Appearance,Urine Clear (Clear); Bilirubin,Urine Negative (Negative); Blood,Urine Negative (Negative); Color,Urine Colorless; Glucose,Urine (UA) Negative (Negative); Ketones,Urine Negative (Negative); Leukocyte Esterase,Urine Negative (Negative); Nitrite,Urine Negative (Negative); Protein,Urine Negative (Negative); Specific Gravity,Urine 1.012 (1.001-1.035); Urobilinogen,Urine <2.0 mg/dL (<2.0)
[2024-06-15] MEDS: ACETAMINOPHEN TAB 500 MG TAB PO STA (21:08)
[2024-06-15] MEDS: LIDOCAINE 4% PATCH TOPICAL ONE (21:56)
[2024-06-15] MEDS: KETOROLAC 15 MG/ML 1 ML VIAL IM STA (21:58)
[2024-06-15] MEDS: DEXAMETHASONE SOD PHOSPHATE 10 MG/ML 1 ML VIAL IM STA (22:00)
[2024-06-15] MEDS: ORPHENADRINE 30 MG/ML 2 ML VIAL IM STA (22:00)
--- NOTE | 2024-06-15 22:14 | ED ---
Back Pain HPI - General Chief Complaint: Back Pain/Injury Stated Complaint: Low back pain Time Seen by Provider: 06/15/24 20:51 Source: patient Limitations: no limitations - History of Present Illness Initial Comments: 23-year-old female presenting with chief complaint of back pain. Patient is having lower back pain, initially started on the right side and now is on both sides. She denies any injury or trauma. States that a few days ago she did help her friend move. No radiculopathy. No loss of bowel or bladder control or saddle paresthesia. No dysuria or hematuria. No fevers or chills. Patient does get nauseous from the pain, no vomiting. - Related Data Home Medications Medication Instructions Recorded Confirmed Ergocalciferol [Vitamin D2 (1250 1,250 mcg PO MO 12/31/22 12/31/22 Mcg = 89336 Iu)] Levothyroxine Sodium [Synthroid] 25 mcg PO DAILY 12/31/22 12/31/22 Previous Rx's Medication Instructions Recorded Acetaminophen Tab [Tylenol] 1,000 mg PO Q6HR PRN #30 tablet 01/02/23 Ibuprofen [Motrin] 600 mg PO Q8HR PRN #30 tab 01/02/23 Cyclobenzaprine [Flexeril] 10 mg PO TID PRN #15 tab 06/15/24 Lidocaine 5% Patch [Lidoderm 5% 1 patch TOPICAL DAILY PRN #30 patch 06/15/24 Patch] Ondansetron Odt [Zofran Odt] 4 mg PO Q8HR PRN #20 tab 06/15/24 Allergies Allergy/AdvReac Type Severity Reaction Status Date / Time No Known Allergies Allergy Verified 05/23/24 15:14 Review of Systems ROS Statement: Those systems with pertinent positive or pertinent negative responses have been documented in the HPI. ROS Other: All systems not noted in ROS Statement are negative. Past Medical History Past Medical History: Thyroid Disorder History of Any Multi-Drug Resistant Organisms: None Reported Past Surgical History: Cholecystectomy Past Psychological History: Anxiety Smoking Status: Former smoker, Vaper Past Alcohol Use History: Occasional Past Drug Use History: Marijuana General Exam Limitations: no limitations General appearance: alert, in no apparent distress Head exam: Present: atraumatic, normocephalic, normal inspection Eye exam: Present: normal appearance, EOMI Neck exam: Present: normal inspection. Absent: meningismus Respiratory exam: Absent: respiratory distress Cardiovascular Exam: Present: regular rate Extremities exam: Present: normal inspection Back exam: Present: normal inspection, tenderness Neurological exam: Present: alert, oriented X3 Psychiatric exam: Present: normal affect, normal mood Skin exam: Present: warm, dry Course Vital Signs 06/15/24 06/15/24 20:29 22:16 Temperature 97.9 F Pulse Rate 69 79 Respiratory 18 18 Rate Blood Pressure 122/71 118/76 O2 Sat by Pulse 98 99 Oximetry Medical Decision Making - Medical Decision Making Was pt. sent in by a medical professional or institution (, PA, PUDDLER HELPER, urgent care, hospital, or detention...) When possible be specific @ -No Did you speak to anyone other than the patient for history (EMS, parent, family, police, friend...)? What history was obtained from this source @ -No Did you review nursing and triage notes (agree or disagree)? Why? @ -I reviewed and agree with nursing and triage notes Were old charts reviewed (outside hosp., previous admission, EMS record, old EKG, old radiological studies, urgent care reports/EKG's, detention records)? Report findings @ -No old charts were reviewed Differential Diagnosis (chest pain, altered mental status, abdominal pain women, abdominal pain men, vaginal bleeding, weakness, fever, dyspnea, syncope, headache, dizziness, GI bleed, back pain, seizure, CVA, palpatations, mental health, musculoskeletal)? @ - MDM Differential Back Pain: Strain, zoster, cauda equina syndrome, epidural abscess, vertebral osteomyelitis, discitis, fracture, subluxation, disc herniation, DJD, spinal stenosis, dissection, AAA, pancreatitis, peptic ulcer disease, pyelonephritis, kidney stone this is not meant to be an all-inclusive list. EKG interpreted by me (3pts min.). @ -As above X-rays interpreted by me (1pt min.). @ -None done CT interpreted by me (1pt min.). @ -None done U/S interpreted by me (1pt. min.). @ -None done What testing was considered but not performed or refused? (CT, X-rays, U/S, labs)? Why? @ -None What meds were considered but not given or refused? Why? @ -None Did you discuss the management of the patient with other professionals (professionals i.e. DrSanjuana, PA, PUDDLER HELPER, lab, RT, psych nurse, renal social worker, enterprise application administrator, teacher, surveillance officer, correctional case manager)? Give summary @ -No Was smoking cessation discussed for >3mins.? @ -No Was critical care preformed (if so, how long)? @ -No Were there social determinants of health that impacted care today? How? (Homelessness, low income, unemployed, alcoholism, drug addiction, transportation, low edu. Level, literacy, decrease access to med. care, prison, rehab)? @ -No Was there de-escalation of care discussed even if they declined (Discuss DNR or withdrawal of care, Hospice)? DNR status @ -No What co-morbidities impacted this encounter? (DM, HTN, Smoking, COPD, CAD, Cancer, CVA, ARF, Chemo, Hep., AIDS, mental health diagnosis, sleep apnea, morbid obesity)? @ -None Was patient admitted / discharged? Hospital course, mention meds given and route, prescriptions, significant lab abnormalities, going to OR and other pertinent info. @ -23-year-old female presenting with chief complaint of lower back pain. No red flag symptoms. Patient did help a friend move a few days ago. Urine is negative for infectious process and hCG is negative. Patient is treated with pain medication and on reassessment reports significant improvement in her symptoms. Discharged. Follow-up with PCP. Report back to ER with any new or worsening symptoms. Discussed return parameters and answered all questions. Patient conveyed verbal understanding and agreed to the plan. My attending is Dr. Bermeo Undiagnosed new problem with uncertain prognosis? @ -No Drug Therapy requiring intensive monitoring for toxicity (Heparin, Nitro, I nsulin, Cardizem)? @ -No Were any procedures done? @ -No Diagnosis/symptom? @ -lower back pain Acute, or Chronic, or Acute on Chronic? @ -Acute Uncomplicated (without systemic symptoms) or Complicated (systemic symptoms)? @ -Uncomplicated Side effects of treatment? @ -No Exacerbation, Progression, or Severe Exacerbation? @ -No Poses a threat to life or bodily function? How? (Chest pain, [place], [place], pneumonia, PE, COPD, DKA, ARF, appy, cholecystitis, CVA, Diverticulitis, Homicidal, Suicidal, threat to staff... and all critical care pts) @ -No - Lab Data Lab Results 06/15/24 06/15/24 Range/Units 20:34 20:34 Urine Color Colorless Urine Appearance Clear (Clear) Urine pH 6.0 (5.0-8.0) Ur Specific [place] 1.012 (1.001-1.035) Urine Protein Negative (Negative) Urine Glucose (UA) Negative (Negative) Urine Ketones Negative (Negative) Urine Blood Negative (Negative) Urine Nitrite Negative (Negative) Urine Bilirubin Negative (Negative) Urine Urobilinogen <2.0 (<2.0) mg/dL Ur Leukocyte Esterase Negative (Negative) Urine HCG, Qual Not Detected (Not Detectd) Disposition Clinical Impression: Mechanical back pain Disposition: HOME SELF-CARE Condition: Good Instructions (If sedation given, give patient instructions): Acute Low Back Pain (ED) Additional Instructions: Follow-up with PCP. Report back to ER with any new or worsening symptoms. Take Motrin and Tylenol as needed for pain control. Do not take cyclobenzaprine before driving or operating heavy machinery as it may cause drowsiness. Prescriptions: Cyclobenzaprine [Flexeril] 10 mg PO TID PRN #15 tab PRN Reason: Spasms Lidocaine 5% Patch [Lidoderm 5% Patch] 1 patch TOPICAL DAILY PRN #30 patch PRN Reason: Pain Ondansetron Odt [Zofran Odt] 4 mg PO Q8HR PRN #20 tab PRN Reason: Nausea Is patient prescribed a controlled substance at d/c from ED?: No Referrals: Yeimy Guzman MD [Primary Care Provider] - 1-2 days Time of Disposition: 22:34
[2024-06-15] MEDS: ONDANSETRON ODT 4 MG TAB PO STA (22:15)
[2024-06-15 22:17] VITALS: BP 118/76; PULSE 79
== END 2024-06-15 22:37 | disposition home or self-care (01) ==
LOC: EC 20:24
DX: M54.50 Low back pain, unspecified (principal); F17.290 Nicotine dependence, other tobacco product, uncomplicated
CPT/HCPCS: 81003; 81025; 99284; 96372; J1885

== ENCOUNTER → 2024-12-04 | Outpatient (CLI) | payer OTHER ==
--- NOTE | 2024-12-05 08:29 | US ---
EXAMINATION TYPE: US thyroid st tissue head/neck DATE OF EXAM: 12/04/2024 COMPARISON: NONE CLINICAL INDICATION: Female, 24 years old with history of E04.0 NONTOXI DIFF GOITER; TECHNIQUE: Grayscale and color Doppler imaging of the thyroid gland. FINDINGS: GLAND SIZE: Right Lobe: 4.2 x 1.0 x 1.6 cm Overall Parenchyma: homogeneous Left Lobe: 3.9 x 1.0 x 1.3 cm Overall Parenchyma: homogeneous Isthmus Thickness: 0.2 cm NODULES RIGHT: # of nodules measured on right: 0 LEFT: # of nodules measured on left: 0 ISTHMUS: # of nodules measured in the isthmus: 0 Bilateral neck scanned, no evidence of lymphadenopathy. IMPRESSION: No thyroid nodules identified. TI-RADS assessment score and recommendation for follow-up based on appropriate scoring and treatment protocols. TR1 Benign No FNA TR2 Not suspicious No FNA TR3: If nodule size is ? 2.5 cm, FNA is recommended. If nodule size is ? 1.5 cm, follow-up imaging at 1, 3, and 5 years is recommended. TR4: If nodule size is ? 1.5 cm, FNA is recommended. If nodule size is ? 1.0 cm, follow-up imaging at 1, 2, 3, and 5 years is recommended. TR5: If nodule size is ? 1.0 cm, FNA is recommended. If nodule size is ? 0.5 cm, annual follow-up for up to 5 years is recommended. TR 1 thyroid nodules have a 0.3 % risk of malignancy. TR 2 thyroid nodules have a 1.5 % risk of malignancy. TR 3 thyroid nodules have a 4.8 % risk of malignancy. TR 4 thyroid nodules have a 9.1 % risk of malignancy. TR 5 thyroid nodules have a 35 % risk of malignancy. [email or web address] [facility], , 12/05/2024 8:26 AM
== END | disposition home or self-care (01) ==
LOC: RADUSWWP 15:54
PROVIDERS: ATTEND Internal Medicine
DX: E04.0 Nontoxic diffuse goiter (principal)
CPT/HCPCS: 76536